=== PATIENT | female | born 1935 | race American Indian/Alaskan Native ===

== ENCOUNTER 2016-12-14 11:29 | Inpatient (IN) | payer MEDICARE ==
--- NOTE | 2016-12-14 12:52 | C.PDOC ---
History Of Present Illness 81 y/o female with Hx of Stroke brought to ED via EMS from home for PEG tube evaluation. Son was contacted and information regarding patient was obtained from him. At ED patient is bed bound, non verbal and contractive with no family member at bedside. As per son patient lives with Aids at home and has visiting nurse care as well as house call for physician care because she is unable to visit doctor's office. Patient has a feeding tube and a Arnold in place. No other complaints at this time. Time Seen by Provider: 12/14/16 12:28 Chief Complaint (Nursing): Medical Clearance History Per: Family (Son) History/Exam Limitations: physical impairment (Patient is non verbal) Onset/Duration Of Symptoms: Days Current Symptoms Are (Timing): Still Present Past Medical History Reviewed: Historical Data, Nursing Documentation, Vital Signs Vital Signs: Last Vital Signs Temp 98.0 F 12/14/16 14:32 Pulse 92 H 12/14/16 14:32 Resp 24 12/14/16 14:32 BP 136/91 H 12/14/16 14:32 Pulse Ox 100 12/14/16 14:32 Family History: States: No Known Family Hx - Social History Hx Alcohol Use: No Hx Substance Use: No Review Of Systems Review Of Systems: ROS cannot be obtained secondary to pt's inabilty to answer questions. (Patient is non verbal) Physical Exam - Physical Exam Appears: Other (Malodorous, non verbal) Skin: Warm Head: Atraumatic Respiratory: No Rales, Rhonchi (Scattered ), No Wheezing Gastrointestinal/Abdominal: Soft, No Tenderness, No Guarding, No Rebound, Other (Obese abdomen, PEG in place, Arnold in place) Extremity: Capillary Refill (<2 seconds), Other (Lower extremities contracted, Healing bedsores to heels ) Neurological/Psych: Oriented x3 ED Course And Treatment - Laboratory Results Result Diagrams: 12/14/16 13:28 12/14/16 13:28 O2 Sat by Pulse Oximetry: 99 (RA) Pulse Ox Interpretation: Normal Medical Decision Making Medical Decision Making: Call out to GI doctor Basic full work up ordered Spoke with family, they suspected an issue with the Peg. Patient seen by GI, Peg flushing well. Spoke to family, they request swallow eval and treatment for thrush. Spoke with PMD, Dr Gordon, will hospitalize for hydration, swallow eval, Disposition Discussed With DrYoly: Sahra Womack Doctor Will See Patient In The: Office Counseled Patient/Family Regarding: Studies Performed, Diagnosis - Disposition Disposition: HOSPITALIZED Disposition Time: 15:08 Condition: GUARDED - POA Present On Arrival: None - Clinical Impression Clinical Impression: Thrush, oral - Scribe Statement The provider has reviewed the documentation as recorded by the [place] All medical record entries made by the Lauren were at my direction and personally dictated by me. I have reviewed the chart and agree that the record accurately reflects my personal performance of the history, physical exam, medical decision making, and the department course for this patient. I have also personally directed, reviewed, and agree with the discharge instructions and disposition. Decision To Admit - Pt Status Changed To: Hospital Disposition Of: Observation - . Bed Request Type: Regular Patient Diagnosis: Thrush, oral
--- NOTE | 2016-12-14 13:19 | RAD ---
HISTORY: Sepsis Patient COMPARISON: None available. TECHNIQUE: Chest, one view. FINDINGS: Examination limited by habitus, hypoinflation, and patient obliquity. LUNGS: Retrocardiac opacity with evidence of air-fluid level suspected to reflect large hiatal hernia. Please note that chest x-ray has limited sensitivity for the detection of pulmonary masses. PLEURA: No significant pleural effusion identified. No definite pneumothorax . CARDIOVASCULAR: Cardiomegaly. Ectatic aorta. OSSEOUS STRUCTURES: Degenerative changes. VISUALIZED UPPER ABDOMEN: Unremarkable. OTHER FINDINGS: None. IMPRESSION: Limited study as above. Large retrocardiac opacity suspected to reflect hiatal hernia. Recommend chest PA and lateral for confirmation if indicated.
[2016-12-14 13:27] LABS: VENOUS BLOOD GAS BASE EXCESS 1.2 mmol/L (0.0-2.0); VENOUS BLOOD GAS PCO2 41 mmHg (40-60); VENOUS BLOOD GAS PO2 34 mm/Hg (30-55); VENOUS BLOOD PH 7.41 (7.32-7.43)
[2016-12-14 13:32] LABS: BASO # 0.1 K/uL (0.0-0.2); BASO % 0.5 % (0.0-2.0); EOS # 0.2 K/uL (0.0-0.7); EOS % 1.9 % (0.0-4.0); HEMOGLOBIN 12.6 g/dL (11.0-16.0); LYMPH # 1.2 K/uL (1.0-4.3); LYMPH % 11.5 % (20.0-40.0); MEAN CORPUSCULAR HEMOGLOBIN 27.9 pg (27.0-31.0); MEAN CORPUSCULAR HGB CONC 32.8 g/dL (33.0-37.0); MEAN PLATELET VOLUME 8.9 fL (7.2-11.7); MONO # 0.7 K/uL (0.0-0.8); MONO % 6.8 % (0.0-10.0); NEUT # 8.2 K/uL (1.8-7.0); NEUT % 79.3 % (50.0-75.0); NRBC % 0.1 % (0.0-2.0); RBC 4.52 Mil/uL (3.80-5.20); RED CELL DISTRIBUTION WIDTH 16.4 % (11.5-14.5); WHITE BLOOD COUNT 10.4 K/uL (4.8-10.8)
[2016-12-14 13:40] LABS: ALBUMIN 3.5 g/dL (3.5-5.0)
[2016-12-14 13:42] LABS: GFR AFRICAN-AMERICAN > 60; GFR NON-AFRICAN AMERICAN > 60
[2016-12-14 13:43] LABS: ALB/GLOB RATIO 0.9 (1.0-2.1); ALT/SGPT 44 U/L (9-52); AST/SGOT 31 U/L (14-36); BLOOD UREA NITROGEN 23 mg/dL (7-17)
[2016-12-14 13:44] LABS: CALCIUM 9.3 mg/dl (8.6-10.4)
[2016-12-14 13:52] LABS: B-TYPE NATRIURETIC PEPTIDE 141 pg/mL (0-900)
--- NOTE | 2016-12-14 14:32 | CP.PCM.PN ---
Subjective - Date & Time of Evaluation Date of Evaluation: 12/14/16 Time of Evaluation: 12:45 - Subjective Subjective: PGY5 GI Fellow Eval Note Our service was asked to evaluate the patient's PEG tube. No family or caretakers were available until after our evaluation. The PEG site in intact with minimal drainage (normal) from around the PEG tube site. Patient's skin is intact and there is no obvious infection or irritation. A Arminda syringe was used to flush and withdraw fluid from the tube with ease. There is no evidence of malfunction. The patient's manager of tires sales arrived after evaluation and is unable to explain what the patients son's concern was regarding the PEG tube. She was reassured that the tube is working properly. Lab work is pending. Vitals are stable. Objective - Vital Signs/Intake and Output Vital Signs (last 24 hours): Temp Pulse Resp BP Pulse Ox 98.1 F 86 24 129/81 99 12/14/16 11:48 12/14/16 11:48 12/14/16 11:48 12/14/16 11:48 12/14/16 13:02 - Labs Labs: 12/14/16 13:28 12/14/16 13:28 - Constitutional Appears: No Acute Distress, Chronically Ill - Eye Exam Eye Exam: PERRL - ENT Exam ENT Exam: Mucous Membranes Dry - Respiratory Exam Respiratory Exam: Clear to Ausculation Bilateral. absent: Rales, Rhonchi, Wheezes - Cardiovascular Exam Cardiovascular Exam: RRR, +S1, +S2 - GI/Abdominal Exam GI & Abdominal Exam: Soft, Normal Bowel Sounds. absent: Distended, Firm, Guarding, Rigid, Tenderness, Organomegaly Additional comments: PEG in LUQ with minimal drainage and working appropriately - Extremities Exam Extremities Exam: absent: Pedal Edema Additional comments: contractures noted - Neurological Exam Neurological Exam: Altered. absent: Oriented x3 - Skin Skin Exam: Dry, Warm Assessment and Plan - Assessment and Plan (Free Text) Assessment: 81yo female with PMHx significant for CVA here for PEG tube eval. Plan: -PEG fully functional with no obvious sign of infection -Awaiting blood work -No further recommendations at this time
[2016-12-14 15:06] LABS: SQUAMOUS EPITHIAL < 1 /hpf (0-5); URINE AMORPHOUS SEDIMENT MANY /ul (<OCC); URINE BACTERIA RARE (<OCC); URINE BILIRUBIN NEGATIVE (NEGATIVE); URINE BLOOD NEGATIVE (NEGATIVE); URINE CLARITY Turbid (Clear); URINE COLOR Amber (YELLOW); URINE GLUCOSE (UA) NORMAL (Normal); URINE LEUKOCYTE ESTERASE 2+ Leu/uL (Negative); URINE NITRATE NEGATIVE (NEGATIVE); URINE PROTEIN 2+ mg/dL (NEGATIVE); URINE URIC ACID CRYSTALS FEW /hpf (<OCC)
--- NOTE | 2016-12-14 15:19 | CP.PCM.HP ---
<Olga Shanks - Last Filed: 12/14/16 16:02> History of Present Illness - History of Present Illness History of Present Illness: Medicine Note for Dr. Dubois CC: Malfunctioning PEG Tube HPI: 81F with PMHx of CVA and HTN, presents with a malfunctioning PEG Tube and dysphasia. Patient is contracted, nonverbal s/p CVA. As per Grandson, who was called, the family had difficulty giving her tube feedings last night. Family brought her in due to the inability to give her feedings. Family also reports, they have issues with the valdez catheter coming out. As per grandson, this is the patient's baseline, she is not altered. ROS unattainable. PMHx: CVA in 2014, HTN PSHx: PEG tube Meds: As per JUL All: NKDA SHx: denied x 3 FHx: unremarkable PMD: Dr. Womack Present on Admission - Present on Admission Any Indicators Present on Admission: No Past Patient History - Past Social History Smoking Status: Unknown If Ever Smoked - PSYCHIATRIC Hx Substance Use: No - SURGICAL HISTORY Hx Surgeries: Yes Other/Comment: FEEDING TUBE INSERTION Meds Allergies/Adverse Reactions: Allergies Allergy/AdvReac Type Severity Reaction Status Date / Time Unobtainable Allergy Unverified 12/14/16 11:54 Physical Exam - Constitutional Appears: No Acute Distress, Unkempt - Eye Exam Eye Exam: EOMI, Normal appearance, PERRL Pupil Exam: NORMAL ACCOMODATION - ENT Exam ENT Exam: Mucous Membranes Dry - Respiratory Exam Respiratory Exam: Clear to Auscultation Bilateral, NORMAL BREATHING PATTERN. absent: Wheezes - Cardiovascular Exam Cardiovascular Exam: REGULAR RHYTHM, RRR, +S1, +S2 - GI/Abdominal Exam GI & Abdominal Exam: Normal Bowel Sounds, Soft. absent: Distended, Tenderness - Extremities Exam Extremities exam: Positive for: normal inspection, pedal pulses present. Negative for: pedal edema, tenderness Additional comments: contracted - Neurological Exam Neurological exam: Alert Additional comments: contracted - Skin Skin Exam: Dry, Intact, Normal Color, Warm Results - Vital Signs Recent Vital Signs: Last Vital Signs Temp 98.0 F 12/14/16 14:32 Pulse 92 H 12/14/16 14:32 Resp 24 12/14/16 14:32 BP 136/91 H 12/14/16 14:32 Pulse Ox 99 12/14/16 15:11 - Labs Result Diagrams: 12/14/16 13:28 12/14/16 13:28 Labs: Laboratory Results - last 24 hr 12/14/16 12/14/16 12/14/16 13:24 13:28 13:28 WBC 10.4 RBC 4.52 Hgb 12.6 Hct 38.5 MCV 85.0 MCH 27.9 MCHC 32.8 L RDW 16.4 H Plt Count 344 MPV 8.9 Neut % (Auto) 79.3 H Lymph % (Auto) 11.5 L Harmon % (Auto) 6.8 Eos % (Auto) 1.9 Baso % (Auto) 0.5 Neut # 8.2 H Lymph # 1.2 Harmon # 0.7 Eos # 0.2 Baso # 0.1 pO2 34 VBG pH 7.41 VBG pCO2 41 VBG HCO3 25.0 VBG Total CO2 27.3 VBG O2 Sat (Calc) 74.9 H VBG Base Excess 1.2 VBG Potassium 4.7 Sodium 133.0 135 Chloride 103.0 99 Glucose 95 Lactate 1.2 Potassium 4.7 Carbon Dioxide 23 Anion Gap 17 BUN 23 H Creatinine 0.4 L Est GFR ( Amer) > 60 Est GFR (Non-Af Amer) > 60 Random Glucose 94 Calcium 9.3 Total Bilirubin 0.8 AST 31 ALT 44 Alkaline Phosphatase 125 Troponin I < 0.0120 NT-Pro-B Natriuret Pep 141 Total Protein 7.5 Albumin 3.5 Globulin 4.1 H Albumin/Globulin Ratio 0.9 L Venous Blood Potassium 4.7 Urine Color Urine Clarity Urine pH Ur Specific Oriental Urine Protein Urine Glucose (UA) Urine Ketones Urine Blood Urine Nitrate Urine Bilirubin Urine Urobilinogen Ur Leukocyte Esterase Urine WBC (Auto) Urine RBC (Auto) Ur Squamous Epith Cells Uric Acid Crystals Amorphous Sediment Urine Bacteria 12/14/16 14:43 WBC RBC Hgb Hct MCV MCH MCHC RDW Plt Count MPV Neut % (Auto) Lymph % (Auto) Harmon % (Auto) Eos % (Auto) Baso % (Auto) Neut # Lymph # Harmon # Eos # Baso # pO2 VBG pH VBG pCO2 VBG HCO3 VBG Total CO2 VBG O2 Sat (Calc) VBG Base Excess VBG Potassium Sodium Chloride Glucose Lactate Potassium Carbon Dioxide Anion Gap BUN Creatinine Est GFR ( Amer) Est GFR (Non-Af Amer) Random Glucose Calcium Total Bilirubin AST ALT Alkaline Phosphatase Troponin I NT-Pro-B Natriuret Pep Total Protein Albumin Globulin Albumin/Globulin Ratio Venous Blood Potassium Urine Color Corrina Urine Clarity Turbid Urine pH 8.0 Ur Specific Oriental 1.016 Urine Protein 2+ H Urine Glucose (UA) Normal Urine Ketones Negative Urine Blood Negative Urine Nitrate Negative Urine Bilirubin Negative Urine Urobilinogen 2.0 H Ur Leukocyte Esterase 2+ H Urine WBC (Auto) 64 H Urine RBC (Auto) 4 H Ur Squamous Epith Cells < 1 Uric Acid Crystals Few H Amorphous Sediment Many H Urine Bacteria Rare Assessment & Plan - Assessment and Plan (Free Text) Assessment: 81F with PMHx of presents to the ED with Malfunctioning PEG Tube. Plan: Malfunctioning PEG Tube * Patient was evaluated by GI, PEG was flushed and is functional. * PEG is OKAY to use * Restarted TUBE feedings @ 40cc/hr patient gets 60cc/hr at home. UTI * UA: + LE * Started on NS 100cc/hr * F/U Urine Culture * Started on Rocephin 1 gram daily Oral Thrush * Diflucan 200mg PEG STAT * Started on Diflucan 100mg PEG daily starting 12/15/16 HTN * Restarted home medications: Norvasc 10mg PEG daily, Lopressor 25mg PEG BID Prophylactic Measures * GI PPX: Pepcid 40mg PEG daily * DVT PPX: Heparin [id number], SCDs * NPO until Swallow Eval DW Rimma Hui DO, PGY-1 <Josie Swain V - Last Filed: 12/15/16 20:37> Results - Vital Signs Recent Vital Signs: Last Vital Signs Temp 98.8 F 12/15/16 16:00 Pulse 92 H 12/15/16 16:00 Resp 18 12/15/16 16:00 BP 111/74 12/15/16 17:41 Pulse Ox 98 12/15/16 16:00 - Labs Result Diagrams: 12/15/16 07:08 12/15/16 07:08 Labs: Laboratory Results - last 24 hr 12/15/16 12/15/16 12/15/16 00:02 05:53 07:06 WBC RBC Hgb Hct MCV MCH MCHC RDW Plt Count MPV Neut % (Auto) Lymph % (Auto) Harmon % (Auto) Eos % (Auto) Baso % (Auto) Neut # Lymph # Harmon # Eos # Baso # Sodium Potassium Chloride Carbon Dioxide Anion Gap BUN Creatinine Est GFR ( Amer) Est GFR (Non-Af Amer) POC Glucose (mg/dL) 77 92 119 H Random Glucose Calcium Phosphorus Magnesium Total Bilirubin AST ALT Alkaline Phosphatase Total Protein Albumin Globulin Albumin/Globulin Ratio HIV 1&2 Antibody Screen 12/15/16 12/15/16 12/15/16 07:08 07:08 10:43 WBC 8.9 RBC 4.20 Hgb 11.8 Hct 35.9 MCV 85.4 MCH 28.2 MCHC 33.0 RDW 16.8 H Plt Count 303 MPV 8.7 Neut % (Auto) 79.0 H Lymph % (Auto) 12.3 L Harmon % (Auto) 7.0 Eos % (Auto) 1.3 Baso % (Auto) 0.4 Neut # 7.0 Lymph # 1.1 Harmon # 0.6 Eos # 0.1 Baso # 0.0 Sodium 138 Potassium 4.0 Chloride 103 Carbon Dioxide 24 Anion Gap 15 BUN 19 H Creatinine 0.4 L Est GFR ( Amer) > 60 Est GFR (Non-Af Amer) > 60 POC Glucose (mg/dL) Random Glucose 105 Calcium 8.7 Phosphorus 3.3 Magnesium 1.6 Total Bilirubin 0.8 AST 25 ALT 38 Alkaline Phosphatase 102 Total Protein 6.5 Albumin 3.1 L Globulin 3.4 Albumin/Globulin Ratio 0.9 L HIV 1&2 Antibody Screen Negative 12/15/16 12/15/16 11:13 16:19 WBC RBC Hgb Hct MCV MCH MCHC RDW Plt Count MPV Neut % (Auto) Lymph % (Auto) Harmon % (Auto) Eos % (Auto) Baso % (Auto) Neut # Lymph # Harmon # Eos # Baso # Sodium Potassium Chloride Carbon Dioxide Anion Gap BUN Creatinine Est GFR ( Amer) Est GFR (Non-Af Amer) POC Glucose (mg/dL) 120 H 109 Random Glucose Calcium Phosphorus Magnesium Total Bilirubin AST ALT Alkaline Phosphatase Total Protein Albumin Globulin Albumin/Globulin Ratio HIV 1&2 Antibody Screen Attending/Attestation - Attestation I have personally seen and examined this patient.: Yes I have fully participated in the care of the patient.: Yes I have reviewed all pertinent clinical information: Yes Notes (Text): This is late computer entry for 12/14/16. Patient seen, examined and case discussed with day-time resident. Patient is bed-bound, nonverbal, individual which prior hx of stroke who was brought into the ED for malfunctioning Peg tube. GI evaluated the patient in the ED, and peg tube is now functioning. Attempt to call family and PMD, Dr Womack to retrieve further history regarding the patient and goals of care for the patient. Patient has oral thrush, unclear if she is able to swallow in addition to peg tube. Patient's home medications for blood pressure resumed on admission. Family provided medications to the ED prior to leaving. UA appears abnormal. Patient has healing wounds over the sacrum and lower extremities. Patient ordered for turn q 2hours to prevent sacral decub given she is bed- bound. Discussed admitting orders with day-time resident. Assessment/Plan 1) Malfunctioning PEG Tube * Patient was evaluated by GI, PEG was flushed and is functional. * PEG is OKAY to use * Restarted TUBE feedings @ 40cc/hr patient gets 60cc/hr at home. 2) UTI * UA: + LE * Started on NS 100cc/hr * F/U Urine Culture * Started on Rocephin 1 gram daily as empiric antibiotic coverage 3) Oral Thrush * Diflucan 200mg PEG STAT * Started on Diflucan 100mg PEG daily starting 12/15/16 4) Hypertension * Restarted home medications: Norvasc 10mg PEG daily, Lopressor 25mg PEG BID 5) Prophylactic Measures * GI PPX: Pepcid 40mg PEG daily * DVT PPX: Heparin [id number], SCDs * NPO until Swallow Eval * Peg feedings resumed
[2016-12-14] MEDS ORDERED: cefTRIAXone IV 1 gm in Dextros 50 ML IVPB ONE ×2 (15:59→16:17)
[2016-12-14] MEDS ORDERED: Sodium Chloride 0.9% 1,000 ML ONE (16:17)
[2016-12-14] MEDS: Sodium Chloride 0.9% 1,000 ML IV SCH (16:20)
[2016-12-14] MEDS: Saccharomyces Boulardi 250 mg Cap PEG SCH (20:01)
[2016-12-15] MEDS: Sodium Chloride 0.9% 1,000 ML IV SCH ×3 (02:14→13:27)
[2016-12-15 07:30] LABS: BASO % 0.4 % (0.0-2.0); EOS # 0.1 K/uL (0.0-0.7); EOS % 1.3 % (0.0-4.0); HEMOGLOBIN 11.8 g/dL (11.0-16.0); LYMPH # 1.1 K/uL (1.0-4.3); LYMPH % 12.3 % (20.0-40.0); MEAN CELL VOLUME 85.4 fL (81.0-99.0); MEAN CORPUSCULAR HEMOGLOBIN 28.2 pg (27.0-31.0); MEAN PLATELET VOLUME 8.7 fL (7.2-11.7); MONO # 0.6 K/uL (0.0-0.8); NRBC % 0.1 % (0.0-2.0); RBC 4.2 Mil/uL (3.80-5.20); RED CELL DISTRIBUTION WIDTH 16.8 % (11.5-14.5); WHITE BLOOD COUNT 8.9 K/uL (4.8-10.8)
[2016-12-15 08:00] LABS: ALBUMIN 3.1 g/dL (3.5-5.0)
[2016-12-15 08:03] LABS: ALB/GLOB RATIO 0.9 (1.0-2.1); ALT/SGPT 38 U/L (9-52); AST/SGOT 25 U/L (14-36); BLOOD UREA NITROGEN 19 mg/dL (7-17); GFR AFRICAN-AMERICAN > 60; GFR NON-AFRICAN AMERICAN > 60
[2016-12-15 08:04] LABS: CALCIUM 8.7 mg/dl (8.6-10.4); MAGNESIUM 1.6 mg/dL (1.6-2.3)
--- NOTE | 2016-12-15 09:37 | CP.PCM.PN ---
<Olga Shanks - Last Filed: 12/15/16 09:34> Subjective - Date & Time of Evaluation Date of Evaluation: 12/15/16 Time of Evaluation: 07:00 - Subjective Subjective: Medicine Note for Dr. Swain Patient was seen and examined at bedside. Patient is contracted, nonverbal but acknowledges presence and responds to my voice. ROS unattainable. Objective - Vital Signs/Intake and Output Vital Signs (last 24 hours): Temp Pulse Resp BP Pulse Ox 98.1 F 92 H 22 113/66 97 12/15/16 07:44 12/15/16 07:44 12/15/16 07:44 12/15/16 07:44 12/15/16 07:44 Intake and Output: 12/15/16 12/15/16 06:59 18:59 Intake Total 1890 Output Total 500 Balance 1390 - Medications Medications: Current Medications Amlodipine Besylate (Norvasc) 10 mg PEG DAILY [facility] Famotidine (Pepcid) 40 mg PEG DAILY [facility] Fluconazole (Diflucan) 100 mg PEG DAILY [facility] Heparin Sodium (Porcine) (Heparin) 5,000 units SC Q12H [facility] Last Admin: 12/14/16 21:06 Dose: 5,000 units Sodium Chloride (Sodium Chloride 0.9%) 1,000 mls @ 100 mls/hr IV .Q10H [facility] Last Admin: 12/15/16 02:14 Dose: 100 mls/hr Ceftriaxone Sodium 1 gm/ (Sodium Chloride) 100 mls @ 100 mls/hr IVPB DAILY [facility] Metoprolol Tartrate (Lopressor) 25 mg PEG BID [facility] Last Admin: 12/14/16 19:00 Dose: 25 mg Pneumococcal Polyvalent Vaccine (Pneumovax 23 Vaccine) 0.5 ml IM .ONCE ONE Stop: 12/16/16 10:01 Saccharomyces Boulardii (Florastor) 250 mg PEG BID [facility] Last Admin: 12/14/16 20:01 Dose: 250 mg - Labs Labs: 12/15/16 07:08 12/15/16 07:08 - Constitutional Appears: No Acute Distress - Head Exam Head Exam: NORMAL INSPECTION, NORMOCEPHALIC - Eye Exam Eye Exam: EOMI, Normal appearance, PERRL Pupil Exam: NORMAL ACCOMODATION - ENT Exam Additional comments: significant oral thrush - Respiratory Exam Respiratory Exam: Clear to Ausculation Bilateral, NORMAL BREATHING PATTERN. absent: Wheezes - Cardiovascular Exam Cardiovascular Exam: REGULAR RHYTHM, RRR - GI/Abdominal Exam GI & Abdominal Exam: Soft, Normal Bowel Sounds. absent: Distended, Tenderness - Extremities Exam Extremities Exam: Normal Inspection. absent: Pedal Edema, Tenderness Additional comments: Contracted - Neurological Exam Neurological Exam: Alert, Awake - Psychiatric Exam Psychiatric exam: Normal Affect, Normal Mood - Skin Skin Exam: Dry, Intact, Normal Color, Warm Assessment and Plan - Assessment and Plan (Free Text) Assessment: 81F with PMHx of presents to the ED with Malfunctioning PEG Tube and UTI. Plan: UTI * UA: + LE * Started on NS 100cc/hr * Started on Rocephin 1 gram daily * F/U Urine Culture Oral Thrush * Started on Diflucan 100mg PEG daily starting 12/15/16 Malfunctioning PEG Tube * Patient was evaluated by GI, PEG was flushed and is functional. * PEG is OKAY to use * Restarted TUBE feedings @ 40cc/hr patient gets 60cc/hr at home. HTN * Restarted home medications: Norvasc 10mg PEG daily, Lopressor 25mg PEG BID Prophylactic Measures * GI PPX: Pepcid 40mg PEG daily * DVT PPX: Heparin [id number], SCDs * Continue PEG feedings, no pleasure feedings * Q2 Turning and repositioning * Pending medical records from PMD's office * Palliative care consulted for goals of care, will reach out to family to determine extent of care they would like DW Rimma Hui DO, PGY-1 <Josie Swain V - Last Filed: 12/15/16 20:50> Objective - Vital Signs/Intake and Output Vital Signs (last 24 hours): Temp Pulse Resp BP Pulse Ox 98.8 F 92 H 18 111/74 98 12/15/16 16:00 12/15/16 16:00 12/15/16 16:00 12/15/16 17:41 12/15/16 16:00 Intake and Output: 12/15/16 12/16/16 18:59 06:59 Intake Total 1320 Output Total 350 Balance 970 - Medications Medications: Current Medications Amlodipine Besylate (Norvasc) 10 mg PEG DAILY [facility] Last Admin: 12/15/16 11:29 Dose: 10 mg Famotidine (Pepcid) 40 mg PEG DAILY [facility] Last Admin: 12/15/16 11:29 Dose: 40 mg Fluconazole (Diflucan) 100 mg PEG DAILY [facility] Last Admin: 12/15/16 11:30 Dose: 100 mg Heparin Sodium (Porcine) (Heparin) 5,000 units SC Q12H [facility] Last Admin: 12/15/16 09:53 Dose: 5,000 units Ceftriaxone Sodium 1 gm/ (Sodium Chloride) 100 mls @ 100 mls/hr IVPB DAILY [facility] Last Admin: 12/15/16 09:51 Dose: 100 mls/hr Sodium Chloride (Sodium Chloride 0.9%) 1,000 mls @ 60 mls/hr IV .[id number] [facility] Last Admin: 12/15/16 13:27 Dose: Not Given Metoprolol Tartrate (Lopressor) 25 mg PEG BID [facility] Last Admin: 12/15/16 17:41 Dose: 25 mg Pneumococcal Polyvalent Vaccine (Pneumovax 23 Vaccine) 0.5 ml IM .ONCE ONE Stop: 12/16/16 10:01 Saccharomyces Boulardii (Florastor) 250 mg PEG BID [facility] Last Admin: 12/15/16 17:41 Dose: 250 mg - Labs Labs: 12/15/16 07:08 12/15/16 07:08 Attending/Attestation - Attestation I have personally seen and examined this patient.: Yes I have fully participated in the care of the patient.: Yes I have reviewed all pertinent clinical information, including history, physical exam and plan: Yes Notes (Text): Patient seen, examined and case discussed with day-time resident. Patient's peg tube is functioning. No over night issues per nursing staff. Discussed with speech and swallow, Shanice, patient has extensive thrush, recommended pleasure feeds. Unclear if patient has had a prior endoscopy or what the family wishes regarding invasive treatment. Will attempt to follow-up with PMD. Palliative care consult regarding goals of care and code status. Assessment/Plan 1) Malfunctioning PEG Tube * Patient was evaluated by GI, PEG was flushed and is functional. * PEG is OKAY to use * Restarted TUBE feedings @ 40cc/hr patient gets 60cc/hr at home. 2) Urinary Tract Infection * UA: + LE * NS 100cc/hr * Urine Culture (12/14/16): gram negative garrett prelim read * Started on Rocephin 1 gram daily as empiric antibiotic coverage * Blood culture (12/14/16): no growth for 24hours X2 3) Oral Thrush * Diflucan 200mg PEG STAT * Started on Diflucan 100mg PEG daily starting 12/15/16 4) Hypertension * Restarted home medications: Norvasc 10mg PEG daily, Lopressor 25mg PEG BID 5) Prophylactic Measures * GI PPX: Pepcid 40mg PEG daily * DVT PPX: Heparin [id number], SCDs * NPO until Swallow Eval * Peg feedings resumed * Palliative care * Turn Q 2hours
--- NOTE | 2016-12-15 09:40 | RAD ---
Chest x-ray single frontal view History: Evaluate for fluid overload. Comparison: 12/14/2016 Findings: Again identified is a large retrocardiac opacity suspected to reflect hiatal hernia. Recommend chest PA and lateral for confirmation if indicated. Increased now mild venous congestion. Worsening linear atelectatic changes in the right midlung zone. Increased right infrahilar prominence. Cardiomegaly. Calcification at the aortic knob. Degenerative changes in the spine and shoulders. Impression: Again identified is a large retrocardiac opacity suspected to reflect hiatal hernia. Recommend chest PA and lateral for confirmation if indicated. Increased now mild venous congestion. Worsening linear atelectatic changes in the right midlung zone. Increased right infrahilar prominence. Cardiomegaly.
[2016-12-15] MEDS: Saccharomyces Boulardi 250 mg Cap PEG SCH ×2 (11:29→17:41)
--- NOTE | 2016-12-15 14:11 | CP.PCM.CON ---
History of Present Illness - History of Present Illness History of Present Illness: Palliative consult Requested by Olga ADAMS Reason; Goals of care discussion Patient is a 81 yo female admitted from home . Family claims difficulties feeding patient via PEG tube. Upon admission GI consult was called and Doctor Elva did not find PEG tube malfunction. The PEG flushes well. Patient found to have UTI, gram - rods and Diflucan and Rocephin initiated. PMH: CVA, HTN Soc. Hx: Lives at home with group home counselor and VNS services. Patient is bed ridden, contracted, non verbal and with PEG Fam Hx: Patient's daughter from kidney failure, and grandson reports Hx of HTN in the family Review of Systems - Review of Systems Systems not reviewed;Unavailable: Altered Mental Status All systems: reviewed and no additional remarkable complaints except Review of Systems: ROS obtained from nursing. As per nursing patient had uneventful night and PEG tube was functioning well. Patient remains afebrile. Valdez drains yellow urine. No acute distress. Past Patient History - Past Social History Smoking Status: Unknown If Ever Smoked - CARDIAC Hx Hypertension: Yes - NEUROLOGICAL Other/Comment: aphasic - INTEGUMENTARY Other/Comment: with healed right heel and sacral decub. - MUSCULOSKELETAL/RHEUMATOLOGICAL Hx Falls: No - GASTROINTESTINAL Other/Comment: with gtt intact. - GENITOURINARY/GYNECOLOGICAL Other/Comment: with 2way valdez cath intact. - PSYCHIATRIC Hx Substance Use: No - SURGICAL HISTORY Hx Surgeries: Yes Other/Comment: FEEDING TUBE INSERTION - ANESTHESIA Hx Anesthesia: Yes Hx Anesthesia Reactions: No Hx Malignant Hyperthermia: No Has any member of the family had a problem w/ anesthesia?: No Meds Allergies/Adverse Reactions: Allergies Allergy/AdvReac Type Severity Reaction Status Date / Time Unobtainable Allergy Unverified 12/14/16 11:54 - Medications Medications: Current Medications Amlodipine Besylate (Norvasc) 10 mg PEG DAILY [facility] Last Admin: 12/15/16 11:29 Dose: 10 mg Famotidine (Pepcid) 40 mg PEG DAILY [facility] Last Admin: 12/15/16 11:29 Dose: 40 mg Fluconazole (Diflucan) 100 mg PEG DAILY [facility] Last Admin: 12/15/16 11:30 Dose: 100 mg Heparin Sodium (Porcine) (Heparin) 5,000 units SC Q12H [facility] Last Admin: 12/15/16 09:53 Dose: 5,000 units Ceftriaxone Sodium 1 gm/ (Sodium Chloride) 100 mls @ 100 mls/hr IVPB DAILY [facility] Last Admin: 12/15/16 09:51 Dose: 100 mls/hr Sodium Chloride (Sodium Chloride 0.9%) 1,000 mls @ 60 mls/hr IV .[id number] [facility] Last Admin: 12/15/16 13:27 Dose: Not Given Metoprolol Tartrate (Lopressor) 25 mg PEG BID [facility] Last Admin: 12/15/16 11:30 Dose: 25 mg Pneumococcal Polyvalent Vaccine (Pneumovax 23 Vaccine) 0.5 ml IM .ONCE ONE Stop: 12/16/16 10:01 Saccharomyces Boulardii (Florastor) 250 mg PEG BID [facility] Last Admin: 12/15/16 11:29 Dose: 250 mg Physical Exam - Constitutional Appears: Chronically Ill - Head Exam Head Exam: ATRAUMATIC, NORMAL INSPECTION, NORMOCEPHALIC - Eye Exam Eye Exam: Normal appearance, PERRL Pupil Exam: NORMAL ACCOMODATION, PERRL - ENT Exam ENT Exam: Mucous Membranes Dry - Neck Exam Neck exam: Positive for: Normal Inspection - Respiratory Exam Respiratory Exam: Decreased Breath Sounds, NORMAL BREATHING PATTERN - Cardiovascular Exam Cardiovascular Exam: Tachycardia, REGULAR RHYTHM, +S1, +S2 - GI/Abdominal Exam GI & Abdominal Exam: Diminished Bowel Sounds Additional comments: PEG - Rectal Exam Rectal Exam: Deferred - Extremities Exam Additional comments: contracted - Back Exam Back exam: NORMAL INSPECTION - Neurological Exam Neurological exam: Alert, Altered, Motor Sensory Deficit - Psychiatric Exam Psychiatric exam: Flat Affect - Skin Skin Exam: Dry, Intact, Normal Color Results - Vital Signs Recent Vital Signs: Last Vital Signs Temp 98.1 F 12/15/16 07:44 Pulse 92 H 12/15/16 07:44 Resp 22 12/15/16 07:44 BP 113/66 12/15/16 11:30 Pulse Ox 97 12/15/16 07:44 - Labs Result Diagrams: 12/15/16 07:08 12/15/16 07:08 Labs: Laboratory Results - last 24 hr 12/15/16 12/15/16 12/15/16 00:02 05:53 07:06 WBC RBC Hgb Hct MCV MCH MCHC RDW Plt Count MPV Neut % (Auto) Lymph % (Auto) [place] % (Auto) Eos % (Auto) Baso % (Auto) Neut # Lymph # [place] # Eos # Baso # Sodium Potassium Chloride Carbon Dioxide Anion Gap BUN Creatinine Est GFR ( Amer) Est GFR (Non-Af Amer) POC Glucose (mg/dL) 77 92 119 H Random Glucose Calcium Phosphorus Magnesium Total Bilirubin AST ALT Alkaline Phosphatase Total Protein Albumin Globulin Albumin/Globulin Ratio HIV 1&2 Antibody Screen 12/15/16 12/15/16 12/15/16 07:08 07:08 10:43 WBC 8.9 RBC 4.20 Hgb 11.8 Hct 35.9 MCV 85.4 MCH 28.2 MCHC 33.0 RDW 16.8 H Plt Count 303 MPV 8.7 Neut % (Auto) 79.0 H Lymph % (Auto) 12.3 L [place] % (Auto) 7.0 Eos % (Auto) 1.3 Baso % (Auto) 0.4 Neut # 7.0 Lymph # 1.1 [place] # 0.6 Eos # 0.1 Baso # 0.0 Sodium 138 Potassium 4.0 Chloride 103 Carbon Dioxide 24 Anion Gap 15 BUN 19 H Creatinine 0.4 L Est GFR ( Amer) > 60 Est GFR (Non-Af Amer) > 60 POC Glucose (mg/dL) Random Glucose 105 Calcium 8.7 Phosphorus 3.3 Magnesium 1.6 Total Bilirubin 0.8 AST 25 ALT 38 Alkaline Phosphatase 102 Total Protein 6.5 Albumin 3.1 L Globulin 3.4 Albumin/Globulin Ratio 0.9 L HIV 1&2 Antibody Screen Negative 12/15/16 11:13 WBC RBC Hgb Hct MCV MCH MCHC RDW Plt Count MPV Neut % (Auto) Lymph % (Auto) [place] % (Auto) Eos % (Auto) Baso % (Auto) Neut # Lymph # [place] # Eos # Baso # Sodium Potassium Chloride Carbon Dioxide Anion Gap BUN Creatinine Est GFR ( Amer) Est GFR (Non-Af Amer) POC Glucose (mg/dL) 120 H Random Glucose Calcium Phosphorus Magnesium Total Bilirubin AST ALT Alkaline Phosphatase Total Protein Albumin Globulin Albumin/Globulin Ratio HIV 1&2 Antibody Screen Assessment & Plan - Assessment and Plan (Free Text) Assessment: Palliative consult Full Code status, no advance directive on the chart, PPS 0% I reviewed medical records, all diagnostic studies, examined patient in the bed and discussed goals of care with her grandson over the phone. Patient is alert, makes eye contacts, nonverbal, with upper and lower extremities contracted. Patient looks chronically ill. Breath sounds diminished , no added sounds. Abdomen soft, PEG in place, functioning. Valdez drains clear urine. VS WNL, patient afebrile. In phone conversation with patient's grandson Mr. Tank Weaver, I learned that patient had CVA about 3 years ago and had been in this condition ever since. He reports that ever since it has been patient's base line condition. Mr. Fu is also under the impression that patient is fully aware of her surroundings , just unable to speak. he is attached to the patient, as the patient has been their closest relative ever since his parents . We discussed Code status. I offered information and help with completing POLST, since patient had no wishes for the end of life care documented. Mr. Fu stated understanding, but declined offer. Patient has a visiting UI ENGINEER at home, and Mr. Fu will talk to her more about the Code status on the next home visit. Impression * Chronically ill, elderly patient, fully dependent of help with care * Physical debility due to CVA * Very restricted mobility * Contractions * lack of quality of life * patient's wishes for the end of life care are not known * Patient's grand son advocates for the patient and declined completing the POLST at this time Suggestion * Promote skin integrity * Aspiration precautions * Oral hygiene * DNR/DNI would be appropriate level of care for this patient I discussed case with Visiting UI ENGINEER and suggested she takes over discussion about Code status, once patient returns home.
--- NOTE | 2016-12-15 18:59 | CARD ---
APPROVED REPORT EKG Measurement Heart [id number] <Conclusion> Normal sinus rhythm Low voltage QRS Borderline ECG
[2016-12-16] MEDS: Sodium Chloride 0.9% 1,000 ML IV SCH (05:19)
[2016-12-16 08:14] LABS: HEMOGLOBIN 10.9 g/dL (11.0-16.0); MEAN PLATELET VOLUME 8.8 fL (7.2-11.7)
[2016-12-16 08:21] LABS: BASO % 0.4 % (0.0-2.0); EOS # 0.2 K/uL (0.0-0.7); EOS % 1.8 % (0.0-4.0); LYMPH # 1.4 K/uL (1.0-4.3); MEAN CELL VOLUME 85.4 fL (81.0-99.0); MEAN CORPUSCULAR HEMOGLOBIN 27.8 pg (27.0-31.0); MEAN CORPUSCULAR HGB CONC 32.5 g/dL (33.0-37.0); MONO # 0.7 K/uL (0.0-0.8); MONO % 7.5 % (0.0-10.0); NEUT # 6.5 K/uL (1.8-7.0); NEUT % 74.3 % (50.0-75.0); RBC 3.92 Mil/uL (3.80-5.20); RED CELL DISTRIBUTION WIDTH 16.9 % (11.5-14.5); WHITE BLOOD COUNT 8.7 K/uL (4.8-10.8)
[2016-12-16 08:31] LABS: ALBUMIN 2.9 g/dL (3.5-5.0)
[2016-12-16 08:34] LABS: ALB/GLOB RATIO 0.8 (1.0-2.1); ALT/SGPT 31 U/L (9-52); AST/SGOT 17 U/L (14-36); BLOOD UREA NITROGEN 13 mg/dL (7-17); GFR AFRICAN-AMERICAN > 60; GFR NON-AFRICAN AMERICAN > 60
[2016-12-16 08:35] LABS: CALCIUM 8.5 mg/dl (8.6-10.4); MAGNESIUM 1.6 mg/dL (1.6-2.3)
[2016-12-16] MEDS: Saccharomyces Boulardi 250 mg Cap PEG SCH ×2 (09:31→17:31)
[2016-12-16] MEDS ORDERED: Pneumococcal 23-Valent Vaccine IM ONE (10:00)
--- NOTE | 2016-12-16 16:22 | CP.PCM.CON ---
History of Present Illness - History of Present Illness History of Present Illness: 81F presents with a malfunctioning PEG Tube and dysphasia. Patient is contracted , nonverbal s/p CVA. Family also reports, they have issues with the valdez catheter coming out. ID consulted for + urine c/s PMHx: CVA in 2015, right sided weak OBS HTN PSHx: PEG tube All: NKDA SHx: denied x 3 FHx: unremarkable Review of Systems - Review of Systems Systems not reviewed;Unavailable: Altered Mental Status - Constitutional Constitutional: absent: As Per HPI, Anorexia, Chills, Daytime Sleepiness, Excessive Sweating, Fatigue, Fever, Frequent Falls, Headache, Increased Appetite , Lethargy, Malaise, Night Sweats, Snoring, Sleep Apnea, Weight Gain, Weight Loss, Weakness, Other - EENT Eyes: absent: As Per HPI, Blind Spots, Blurred Vision, Change in Vision, Decreased Night Vision, Diplopia, Discharge, Dry Eye, Exophthalmos, Floaters, Irritation, Itchy Eyes, Loss of Peripheral Vision, Pain, Photophobia, Requires Corrective Lenses, Sees Flashes, Spots in Vision, Tunnel Vision, Other Visual Disturbances, Loss of Vision, Other Ears: absent: As Per HPI, Decreased Hearing, Ear Discharge, Ear Pain, Tinnitus, Abnormal Hearing, Disequilibrium, Dizziness, Other Nose/Mouth/Throat: absent: As Per HPI, Epistaxis, Nasal Congestion, Nasal Discharge, Nasal Obstruction, Nasal Trauma, Nose Pain, Post Nasal Drip, Sinus Pain, Sinus Pressure, Bleeding Gums, Change in Voice, Dental Pain, Dry Mouth, Dysphagia, Halitosis, Hoarsness, Lip Swelling, Mouth Lesions, Mouth Pain, Odynophagia, Sore Throat, Throat Swelling, Tongue Swelling, Facial Pain, Neck Pain, Neck Mass, Other - Breasts Breasts: absent: As Per HPI, Change in Shape, Mass, Pain, Nipple Discharge, Nipple Inversion, Skin Changes, Swelling, Other - Cardiovascular Cardiovascular: absent: As Per HPI, Acrocyanosis, Chest Pain, Chest Pain at Rest , Chest Pain with Activity, Claudication, Diaphoresis, Dyspnea, Dyspnea on Exertion, Edema, Irregular Heart Rhythm, Pain Radiating to Arm/Neck/Jaw, Leg Edema, Leg Ulcers, Lightheadedness, Orthopnea, Palpitations, Paroxysmal Nocturnal Dyspnea, Pedal Edema, Radiating Pain, Rapid Heart Rate, Slow Heart Rate, Syncope, Other - Respiratory Respiratory: absent: As Per HPI, Cough, Dyspnea, Hemoptysis, Dyspnea on Exertion , Wheezing, Snoring, Stridor, Pain on Inspiration, Chest Congestion, Excessive Mucous Production, Change in Mucous Color, Pain with Coughing, Other - Gastrointestinal Gastrointestinal: absent: As Per HPI, Abdominal Pain, Belching, Bloating, Change in Bowel Habits, Change in Stool Character, Coffee Ground Emesis, Constipation, Cramping, Diarrhea, Dyspepsia, Dysphagia, Early Satiety, Excessive Flatus, Fecal Incontinence, Heartburn, Hematemesis, Hematochezia, Loose Stools, Melena, Nausea, Odynophagia, Temesmus, Vomiting, Other - Genitourinary Genitourinary: As Per HPI - Reproductive: Female Reproductive:Female: absent: As Per HPI, Amenorrhea, Amenorrhea/ Control, Currently Menstual, Cycle <21 Days, Cycle >35 Days, Cycle Variable, Menses 1-7 Days, Menses >/= 8 Days, Menses Variable, Cycle > 4 Weeks Between, No Menses for 6 Months, Heavy Menses, Light Menses, Normal Menses, Spotting Between Cycles , S/P Hysterectomy, Menopausal, Post Menopausal, Premenarche, Abnormal Vaginal Bleeding, Dysmenorrhea, Dyspareunia, Genital Lesions, Genital Pruritis, Pelvic Pain, Prolapse Symptoms, Sexual Dysfunction, Vaginal Discharge, Vaginal Dryness , Vaginal Odor, Vaginal Pruritis, Other - Menstruation Menstruation: absent: As Per HPI, Amenorrhea, Amenorrhea/ Control, Currently Menstual, Cycle <21 Days, Cycle >35 Days, Cycle Variable, Menses 1-7 Days, Menses >/= 8 Days, Menses Variable, Cycle > 4 Weeks Between, No Menses for 6 Months, Heavy Menses, Light Menses, Normal Menses, Spotting Between Cycles , S/P Hysterectomy, Menopausal, Post Menopausal, Premenarche, Abnormal Vaginal Bleeding, Dysmenorrhea, Other - Musculoskeletal Musculoskeletal: As Per HPI - Integumentary Integumentary: As Per HPI - Neurological Neurological: As Per HPI - Psychiatric Psychiatric: absent: As Per HPI, Abnormal Sleep Pattern, Anhedonia, Anxiety, Auditory Hallucinations, Behavioral Changes, Change in Appetite, Change in Libido, Confusion, Depression, Difficulty Concentrating, Hallucinations, Homicidal Ideation, Hopelessness, Irritability, Memory Loss, Mood Swings, Panic Attacks, Paranoia, Suicidal Ideation, Visual Hallucinations, Tactile Hallucinations, Other - Endocrine Endocrine: absent: As Per HPI, Change in Body Appearance, Change in Libido, Cold Intolorance, Deepening of Voice, Excessive Sweating, Fatigue, Flushing, Heat Intolorance, Increase in Ring/Shoe/Hat Size, Palpitations, Polydipsia, Polyphagia, Polyuria, Other - Hematologic/Lymphatic Hematologic: absent: As Per HPI, Easy Bleeding, Easy Bruising, Lymphadenopathy, Other Past Patient History - Past Social History Smoking Status: Unknown If Ever Smoked - CARDIAC Hx Hypertension: Yes - NEUROLOGICAL Other/Comment: aphasic - INTEGUMENTARY Other/Comment: with healed right heel and sacral decub. - MUSCULOSKELETAL/RHEUMATOLOGICAL Hx Falls: No - GASTROINTESTINAL Other/Comment: with gtt intact. - GENITOURINARY/GYNECOLOGICAL Other/Comment: with 2way valdez cath intact. - PSYCHIATRIC Hx Substance Use: No - SURGICAL HISTORY Hx Surgeries: Yes Other/Comment: FEEDING TUBE INSERTION - ANESTHESIA Hx Anesthesia: Yes Hx Anesthesia Reactions: No Hx Malignant Hyperthermia: No Has any member of the family had a problem w/ anesthesia?: No Meds Allergies/Adverse Reactions: Allergies Allergy/AdvReac Type Severity Reaction Status Date / Time Unobtainable Allergy Unverified 12/14/16 11:54 - Medications Medications: Current Medications Amlodipine Besylate (Norvasc) 10 mg PEG DAILY [facility] Last Admin: 12/16/16 09:31 Dose: 10 mg Famotidine (Pepcid) 40 mg PEG DAILY [facility] Last Admin: 12/16/16 09:31 Dose: 40 mg Fluconazole (Diflucan) 100 mg PEG DAILY [facility] Last Admin: 12/16/16 09:32 Dose: 100 mg Heparin Sodium (Porcine) (Heparin) 5,000 units SC Q12H [facility] Last Admin: 12/16/16 09:30 Dose: 5,000 units Ceftriaxone Sodium 1 gm/ (Sodium Chloride) 100 mls @ 100 mls/hr IVPB DAILY [facility] Last Admin: 12/16/16 09:31 Dose: 100 mls/hr Sodium Chloride (Sodium Chloride 0.9%) 1,000 mls @ 60 mls/hr IV .[id number] [facility] Last Admin: 12/16/16 05:19 Dose: 60 mls/hr Metoprolol Tartrate (Lopressor) 25 mg PEG BID [facility] Last Admin: 12/16/16 09:32 Dose: 25 mg Saccharomyces Boulardii (Florastor) 250 mg PEG BID [facility] Last Admin: 12/16/16 09:31 Dose: 250 mg Physical Exam - Constitutional Appears: Non-toxic, Confused, Cachectic, Chronically Ill - Head Exam Head Exam: ATRAUMATIC, NORMAL INSPECTION, NORMOCEPHALIC - Eye Exam Eye Exam: EOMI, PERRL. absent: Scleral icterus Pupil Exam: NORMAL ACCOMODATION - ENT Exam ENT Exam: Mucous Membranes Dry, Normal External Ear Exam - Neck Exam Neck exam: Negative for: Lymphadenopathy, Thyromegaly - Respiratory Exam Respiratory Exam: Decreased Breath Sounds, Rhonchi - Cardiovascular Exam Cardiovascular Exam: REGULAR RHYTHM, +S1, +S2 - GI/Abdominal Exam GI & Abdominal Exam: Diminished Bowel Sounds, Soft. absent: Tenderness - Rectal Exam Rectal Exam: Deferred - Exam Exam: NORMAL INSPECTION - Extremities Exam Extremities exam: Positive for: pedal pulses present. Negative for: calf tenderness, pedal edema, tenderness Additional comments: rue and rle contracted - Back Exam Back exam: absent: CVA tenderness (L), CVA tenderness (R) - Neurological Exam Neurological exam: Altered, CN II-XII Intact Additional comments: right sided weak - Psychiatric Exam Psychiatric exam: Depressed - Skin Skin Exam: Dry Results - Vital Signs Recent Vital Signs: Last Vital Signs Temp 98.3 F 12/16/16 10:03 Pulse 90 12/16/16 10:03 Resp 20 12/16/16 10:03 BP 119/78 12/16/16 10:03 Pulse Ox 94 L 12/16/16 10:03 - Labs Result Diagrams: 12/16/16 08:00 12/16/16 08:00 Labs: Laboratory Results - last 24 hr 12/15/16 12/15/16 12/16/16 16:19 21:34 00:24 WBC RBC Hgb Hct MCV MCH MCHC RDW Plt Count MPV Neut % (Auto) Lymph % (Auto) [place] % (Auto) Eos % (Auto) Baso % (Auto) Neut # Lymph # [place] # Eos # Baso # Sodium Potassium Chloride Carbon Dioxide Anion Gap BUN Creatinine Est GFR ( Amer) Est GFR (Non-Af Amer) POC Glucose (mg/dL) 109 92 114 H Random Glucose Calcium Phosphorus Magnesium Total Bilirubin AST ALT Alkaline Phosphatase Total Protein Albumin Globulin Albumin/Globulin Ratio 12/16/16 12/16/16 12/16/16 06:42 08:00 08:00 WBC 8.7 RBC 3.92 Hgb 10.9 L Hct 33.5 L MCV 85.4 MCH 27.8 MCHC 32.5 L RDW 16.9 H Plt Count 299 MPV 8.8 Neut % (Auto) 74.3 Lymph % (Auto) 16.0 L [place] % (Auto) 7.5 Eos % (Auto) 1.8 Baso % (Auto) 0.4 Neut # 6.5 Lymph # 1.4 [place] # 0.7 Eos # 0.2 Baso # 0.0 Sodium 138 Potassium 3.7 Chloride 105 Carbon Dioxide 21 L Anion Gap 16 BUN 13 Creatinine 0.4 L Est GFR ( Amer) > 60 Est GFR (Non-Af Amer) > 60 POC Glucose (mg/dL) 127 H Random Glucose 106 H Calcium 8.5 L Phosphorus 3.4 Magnesium 1.6 Total Bilirubin 0.6 AST 17 ALT 31 Alkaline Phosphatase 109 Total Protein 6.5 Albumin 2.9 L Globulin 3.6 Albumin/Globulin Ratio 0.8 L 12/16/16 12/16/16 11:31 16:03 WBC RBC Hgb Hct MCV MCH MCHC RDW Plt Count MPV Neut % (Auto) Lymph % (Auto) [place] % (Auto) Eos % (Auto) Baso % (Auto) Neut # Lymph # [place] # Eos # Baso # Sodium Potassium Chloride Carbon Dioxide Anion Gap BUN Creatinine Est GFR ( Amer) Est GFR (Non-Af Amer) POC Glucose (mg/dL) 108 111 H Random Glucose Calcium Phosphorus Magnesium Total Bilirubin AST ALT Alkaline Phosphatase Total Protein Albumin Globulin Albumin/Globulin Ratio Assessment & Plan - Assessment and Plan (Free Text) Assessment: 81 yo female with PMH of CVA HTN and OBS admitted with malfunctioning GT and valdez which has been changed no evidence of fever or ongoing sepsis Plan: U/A significant for nitrates and leuk esterase as well as PMN's despite not meeting sepsis criteria, UTI can not be ruled out and she is currently on rocephin which at best is bacteriostatic for the bacteria which were isolated a repeat culture is also growing G+ organisms will add Vanco/ Merrem for short course rx consider removal of valdez if pt can tolerate and family agreeable
[2016-12-16] MEDS: Meropenem 500 MG in Sodium Chloride 0.9% 100 ML IVPB SCH (17:43)
--- NOTE | 2016-12-16 17:56 | CP.PCM.PN ---
<Yordy Urbina - Last Filed: 12/16/16 18:15> Subjective - Date & Time of Evaluation Date of Evaluation: 12/16/16 Time of Evaluation: 17:53 - Subjective Subjective: PGY-[address] Swain HPI: Patient seen and examined at bedside. Patient is nonverbal but follows verbal commands. Objective - Vital Signs/Intake and Output Vital Signs (last 24 hours): Temp Pulse Resp BP Pulse Ox 97.9 F 87 20 115/77 98 12/16/16 16:00 12/16/16 16:00 12/16/16 16:00 12/16/16 17:31 12/16/16 16:00 - Medications Medications: Current Medications Amlodipine Besylate (Norvasc) 10 mg PEG DAILY [facility] Last Admin: 12/16/16 09:31 Dose: 10 mg Famotidine (Pepcid) 40 mg PEG DAILY [facility] Last Admin: 12/16/16 09:31 Dose: 40 mg Fluconazole (Diflucan) 100 mg PEG DAILY [facility] Last Admin: 12/16/16 09:32 Dose: 100 mg Heparin Sodium (Porcine) (Heparin) 5,000 units SC Q12H [facility] Last Admin: 12/16/16 09:30 Dose: 5,000 units Sodium Chloride (Sodium Chloride 0.9%) 1,000 mls @ 60 mls/hr IV .[id number] [facility] Last Admin: 12/16/16 05:19 Dose: 60 mls/hr Vancomycin HCl 500 mg/ Sodium (Chloride) 100 mls @ 100 mls/hr IVPB Q6 [facility] Last Admin: 12/16/16 17:43 Dose: 100 mls/hr Meropenem 500 mg/ Sodium (Chloride) 100 mls @ 100 mls/hr IVPB Q8H [facility] Last Admin: 12/16/16 17:43 Dose: 100 mls/hr Metoprolol Tartrate (Lopressor) 25 mg PEG BID [facility] Last Admin: 12/16/16 17:31 Dose: 25 mg Saccharomyces Boulardii (Florastor) 250 mg PEG BID [facility] Last Admin: 12/16/16 17:31 Dose: 250 mg - Constitutional Appears: Non-toxic, Unkempt - Head Exam Head Exam: ATRAUMATIC, NORMAL INSPECTION - Eye Exam Eye Exam: absent: Conjunctival injection, Periorbital swelling, Periorbital tenderness - ENT Exam ENT Exam: Mucous Membranes Moist - Respiratory Exam Respiratory Exam: Clear to Ausculation Bilateral, NORMAL BREATHING PATTERN. absent: Rales, Rhonchi, Wheezes - Cardiovascular Exam Cardiovascular Exam: REGULAR RHYTHM, RRR. absent: Bradycardia, Tachycardia, Gallop, Rubs, Murmur - GI/Abdominal Exam GI & Abdominal Exam: Soft. absent: Distended, Firm, Guarding, Tenderness, Hernia, Mass, Organomegaly - Exam Additional comments: valdez present. no blood in urine - Neurological Exam Neurological Exam: Alert, Awake (contracted) - Psychiatric Exam Psychiatric exam: Normal Affect, Normal Mood - Skin Skin Exam: Dry, Intact, Normal Color, Warm Assessment and Plan - Assessment and Plan (Free Text) Assessment: UTI * Started on NS 100cc/hr * Started Vanco/Merrem per ID * UC = Gram + cocci, pseudomonas, E. facilis Oral Thrush * Started on Diflucan 100mg PEG daily starting 12/15/16 Malfunctioning PEG Tube * PEG is OKAY to use * Restarted TUBE feedings @ 40cc/hr patient gets 60cc/hr at home. HTN * Restarted home medications: Norvasc 10mg PEG daily, Lopressor 25mg PEG BID Prophylactic Measures * GI PPX: Pepcid 40mg PEG daily * DVT PPX: Heparin [id number], SCDs * Continue PEG feedings, no pleasure feedings * Q2 Turning and repositioning * Pending medical records from PMD's office * Palliative care consulted for goals of care, will reach out to family to determine extent of care they would like <Josie Swain V - Last Filed: 12/17/16 09:59> Objective - Vital Signs/Intake and Output Vital Signs (last 24 hours): Temp Pulse Resp BP Pulse Ox 98.0 F 95 H 20 117/63 97 12/17/16 08:18 12/17/16 08:18 12/17/16 08:18 12/17/16 09:18 12/17/16 08:18 Intake and Output: 12/17/16 12/17/16 06:59 18:59 Intake Total 2060 Output Total 1050 Balance 1010 - Medications Medications: Current Medications Amlodipine Besylate (Norvasc) 10 mg PEG DAILY [facility] Last Admin: 12/17/16 09:18 Dose: 10 mg Famotidine (Pepcid) 40 mg PEG DAILY [facility] Last Admin: 12/17/16 09:18 Dose: 40 mg Fluconazole (Diflucan) 100 mg PEG DAILY [facility] Last Admin: 12/17/16 09:18 Dose: 100 mg Heparin Sodium (Porcine) (Heparin) 5,000 units SC Q12H [facility] Last Admin: 12/17/16 09:17 Dose: 5,000 units Sodium Chloride (Sodium Chloride 0.9%) 1,000 mls @ 60 mls/hr IV .[id number] [facility] Last Admin: 12/17/16 02:28 Dose: 60 mls/hr Vancomycin HCl 500 mg/ Sodium (Chloride) 100 mls @ 100 mls/hr IVPB Q6 [facility] Last Admin: 12/17/16 05:15 Dose: 100 mls/hr Meropenem 500 mg/ Sodium (Chloride) 100 mls @ 100 mls/hr IVPB Q8H [facility] Last Admin: 12/17/16 09:29 Dose: 100 mls/hr Metoprolol Tartrate (Lopressor) 25 mg PEG BID [facility] Last Admin: 12/17/16 09:18 Dose: 25 mg Saccharomyces Boulardii (Florastor) 250 mg PEG BID [facility] Last Admin: 12/17/16 09:18 Dose: 250 mg - Labs Labs: 12/17/16 07:52 12/17/16 07:52 Attending/Attestation - Attestation I have personally seen and examined this patient.: Yes I have fully participated in the care of the patient.: Yes I have reviewed all pertinent clinical information, including history, physical exam and plan: Yes Notes (Text): This is late computer entry for 12/16/16 Patient seen, examined and case discussed with day-time resident. Patient's peg tube is functioning. No over night issues per nursing staff. P{ atient's urine cultures are showing urinary tract infection which is resistant to empiric Rocephin. Will change patient status to inpatient and consult infectious disease of IV abx recommendations. Discussed with speech and swallow, Shanice, patient has extensive thrush, recommended pleasure feeds. Assessment/Plan 1) Malfunctioning PEG Tube * Patient was evaluated by GI, PEG was flushed and is functional. * PEG is OKAY to use * Restarted TUBE feedings @ 40cc/hr patient gets 60cc/hr at home. 2) Urinary Tract Infection * Infectious disease (Dr. Matt) on board-->help appreciated * NS 100cc/hr * Urine Culture (12/14/16): Pseudomonas Aeruginosa and Enterococcus Faecalisis * Urine culture (12/15/16): Enterococcus Faecalis * Blood culture (12/14/16): no growth for 48 hours X2 * Meropenem 500mg IVPB Q8 hours (active since 12/16/16) * Vancomycin 500mg IVQ 8 hours (active since 12/16/16) * Florastor 250mg PO bid * Came with Valdez on admission 3) Oral Thrush * Diflucan 200mg PEG STAT on admission * Started on Diflucan 100mg PEG daily starting 12/15/16 4) Hypertension * Restarted home medications: Norvasc 10mg PEG daily, Lopressor 25mg PEG BID 5) Prophylactic Measures * GI PPX: Pepcid 40mg PEG daily * DVT PPX: Heparin [id number], SCDs * NPO until Swallow Eval * Peg feedings resumed * Palliative care * Turn Q 2hours
[2016-12-17] MEDS: Meropenem 500 MG in Sodium Chloride 0.9% 100 ML IVPB SCH ×3 (00:59→16:55)
[2016-12-17] MEDS: Sodium Chloride 0.9% 1,000 ML IV SCH ×2 (02:28→16:27)
[2016-12-17 08:01] LABS: BASO % 0.4 % (0.0-2.0); EOS # 0.2 K/uL (0.0-0.7); EOS % 2.2 % (0.0-4.0); HEMOGLOBIN 10.9 g/dL (11.0-16.0); LYMPH # 1.2 K/uL (1.0-4.3); LYMPH % 17.7 % (20.0-40.0); MEAN CELL VOLUME 84.2 fL (81.0-99.0); MEAN CORPUSCULAR HEMOGLOBIN 27.7 pg (27.0-31.0); MEAN CORPUSCULAR HGB CONC 32.9 g/dL (33.0-37.0); MEAN PLATELET VOLUME 8.4 fL (7.2-11.7); MONO # 0.6 K/uL (0.0-0.8); MONO % 8.1 % (0.0-10.0); NEUT % 71.6 % (50.0-75.0); RBC 3.93 Mil/uL (3.80-5.20); RED CELL DISTRIBUTION WIDTH 17.1 % (11.5-14.5); WHITE BLOOD COUNT 6.9 K/uL (4.8-10.8)
[2016-12-17 08:09] LABS: ALBUMIN 2.7 g/dL (3.5-5.0)
[2016-12-17 08:12] LABS: ALB/GLOB RATIO 0.8 (1.0-2.1); AST/SGOT 25 U/L (14-36); BLOOD UREA NITROGEN 11 mg/dL (7-17); GFR AFRICAN-AMERICAN > 60; GFR NON-AFRICAN AMERICAN > 60
[2016-12-17 08:13] LABS: ALT/SGPT 28 U/L (9-52); CALCIUM 8.4 mg/dl (8.6-10.4); MAGNESIUM 1.6 mg/dL (1.6-2.3)
[2016-12-17] MEDS: Saccharomyces Boulardi 250 mg Cap PEG SCH ×2 (09:18→17:00)
--- NOTE | 2016-12-17 19:18 | CP.PCM.PN ---
Subjective - Date & Time of Evaluation Date of Evaluation: 12/17/16 Time of Evaluation: 07:00 - Subjective Subjective: afebrile opens eyes following NAD Objective - Vital Signs/Intake and Output Vital Signs (last 24 hours): Temp Pulse Resp BP Pulse Ox 98.9 F 88 20 142/70 95 12/17/16 16:00 12/17/16 16:00 12/17/16 16:00 12/17/16 17:00 12/17/16 16:00 Intake and Output: 12/17/16 12/18/16 18:59 06:59 Output Total 800 Balance -800 - Medications Medications: Current Medications Amlodipine Besylate (Norvasc) 10 mg PEG DAILY [facility] Last Admin: 12/17/16 09:18 Dose: 10 mg Famotidine (Pepcid) 40 mg PEG DAILY [facility] Last Admin: 12/17/16 09:18 Dose: 40 mg Fluconazole (Diflucan) 100 mg PEG DAILY [facility] Last Admin: 12/17/16 09:18 Dose: 100 mg Heparin Sodium (Porcine) (Heparin) 5,000 units SC Q12H [facility] Last Admin: 12/17/16 09:17 Dose: 5,000 units Sodium Chloride (Sodium Chloride 0.9%) 1,000 mls @ 60 mls/hr IV .[id number] [facility] Last Admin: 12/17/16 16:27 Dose: Not Given Vancomycin HCl 500 mg/ Sodium (Chloride) 100 mls @ 100 mls/hr IVPB Q6 [facility] Last Admin: 12/17/16 17:54 Dose: 100 mls/hr Meropenem 500 mg/ Sodium (Chloride) 100 mls @ 100 mls/hr IVPB Q8H [facility] Last Admin: 12/17/16 16:55 Dose: 100 mls/hr Metoprolol Tartrate (Lopressor) 25 mg PEG BID [facility] Last Admin: 12/17/16 17:00 Dose: 25 mg Saccharomyces Boulardii (Florastor) 250 mg PEG BID [facility] Last Admin: 12/17/16 17:00 Dose: 250 mg - Labs Labs: 12/17/16 07:52 12/17/16 07:52 - Constitutional Appears: Non-toxic - Head Exam Head Exam: NORMOCEPHALIC - Eye Exam Eye Exam: PERRL. absent: Scleral icterus - ENT Exam ENT Exam: Mucous Membranes Dry - Neck Exam Neck Exam: absent: Lymphadenopathy - Respiratory Exam Respiratory Exam: Decreased Breath Sounds - Cardiovascular Exam Cardiovascular Exam: REGULAR RHYTHM - GI/Abdominal Exam GI & Abdominal Exam: Distended - Rectal Exam Rectal Exam: Deferred - Exam Exam: NORMAL INSPECTION - Extremities Exam Extremities Exam: absent: Pedal Edema - Back Exam Back Exam: absent: CVA tenderness (L), CVA tenderness (R) - Neurological Exam Neurological Exam: Alert Additional comments: right sided contracted - Skin Skin Exam: Dry Assessment and Plan - Assessment and Plan (Free Text) Plan: cont rx for uti
--- NOTE | 2016-12-17 21:32 | CP.PCM.PN ---
<Yordy Urbina - Last Filed: 12/17/16 21:28> Subjective - Date & Time of Evaluation Date of Evaluation: 12/17/16 Time of Evaluation: 21:28 - Subjective Subjective: PGY-[address] Swain HPI: Patient seen and examined at bedside. Patient is nonverbal but responds to my voice. ROS was unattainable. Objective - Vital Signs/Intake and Output Vital Signs (last 24 hours): Temp Pulse Resp BP Pulse Ox 98.9 F 88 20 142/70 95 12/17/16 16:00 12/17/16 16:00 12/17/16 16:00 12/17/16 17:00 12/17/16 16:00 Intake and Output: 12/17/16 12/18/16 18:59 06:59 Output Total 800 Balance -800 - Medications Medications: Current Medications Amlodipine Besylate (Norvasc) 10 mg PEG DAILY [facility] Last Admin: 12/17/16 09:18 Dose: 10 mg Famotidine (Pepcid) 40 mg PEG DAILY [facility] Last Admin: 12/17/16 09:18 Dose: 40 mg Fluconazole (Diflucan) 100 mg PEG DAILY [facility] Last Admin: 12/17/16 09:18 Dose: 100 mg Heparin Sodium (Porcine) (Heparin) 5,000 units SC ONCE ONE Stop: 12/17/16 21:31 Sodium Chloride (Sodium Chloride 0.9%) 1,000 mls @ 60 mls/hr IV .[id number] [facility] Last Admin: 12/17/16 16:27 Dose: Not Given Vancomycin HCl 500 mg/ Sodium (Chloride) 100 mls @ 100 mls/hr IVPB Q6 [facility] Last Admin: 12/17/16 17:54 Dose: 100 mls/hr Meropenem 500 mg/ Sodium (Chloride) 100 mls @ 100 mls/hr IVPB Q8H [facility] Last Admin: 12/17/16 16:55 Dose: 100 mls/hr Metoprolol Tartrate (Lopressor) 25 mg PEG BID [facility] Last Admin: 12/17/16 17:00 Dose: 25 mg Saccharomyces Boulardii (Florastor) 250 mg PEG BID [facility] Last Admin: 12/17/16 17:00 Dose: 250 mg - Labs Labs: 12/17/16 07:52 12/17/16 07:52 - Constitutional Appears: No Acute Distress, Cachectic (contracted) - Head Exam Head Exam: ATRAUMATIC, NORMAL INSPECTION - Eye Exam Eye Exam: Normal appearance. absent: Conjunctival injection, EOMI, Nystagmus, Periorbital swelling, Periorbital tenderness Pupil Exam: absent: Fixed, Irregular - ENT Exam ENT Exam: Mucous Membranes Moist. absent: Mucous Membranes Dry - Respiratory Exam Respiratory Exam: Clear to Ausculation Bilateral. absent: Rhonchi, Wheezes, Respiratory Distress, Stridor - Cardiovascular Exam Cardiovascular Exam: REGULAR RHYTHM, RRR. absent: Irregular Rhythm, JVD - GI/Abdominal Exam GI & Abdominal Exam: Soft, Normal Bowel Sounds. absent: Bruit, Distended, Firm , Guarding, Rigid, Tenderness - Extremities Exam Extremities Exam: absent: Calf Tenderness, Joint Swelling, Pedal Edema, Tenderness Additional comments: contracted - Skin Skin Exam: Dry, Intact, Normal Color, Warm Assessment and Plan - Assessment and Plan (Free Text) Assessment: 1) Malfunctioning PEG Tube * Patient was evaluated by GI, PEG was flushed and is functional. * PEG is OKAY to use * Restarted TUBE feedings @ 40cc/hr patient gets 60cc/hr at home. 2) Urinary Tract Infection * Infectious disease (Dr. Matt) on board-->help appreciated * NS 100cc/hr * Urine Culture (12/14/16): Pseudomonas Aeruginosa and Enterococcus Faecalisis * Urine culture (12/15/16): Enterococcus Faecalis * Blood culture (12/14/16): no growth for 48 hours X2 * Meropenem 500mg IVPB Q8 hours (active since 12/16/16) * Vancomycin 500mg IV Q6 hours (active since 12/16/16) * Florastor 250mg PO bid * Came with Valdez on admission * exchanged valdez * monitor renal function 3) Oral Thrush * Diflucan 200mg PEG STAT on admission * Started on Diflucan 100mg PEG daily starting 12/15/16 4) Hypertension * Restarted home medications: Norvasc 10mg PEG daily, Lopressor 25mg PEG BID 5) Prophylactic Measures * GI PPX: Pepcid 40mg PEG daily * DVT PPX: Heparin 5000 q12, SCDs * NPO until Swallow Eval * Peg feedings resumed * Palliative care * Turn Q 2hours <Josie Swain V - Last Filed: 12/22/16 14:02> Objective - Vital Signs/Intake and Output Vital Signs (last 24 hours): Temp Pulse Resp BP Pulse Ox 98.5 F 84 20 137/78 100 12/20/16 16:44 12/20/16 16:44 12/20/16 16:44 12/20/16 17:31 12/20/16 16:44 - Labs Labs: 12/20/16 07:15 12/20/16 07:15 Attending/Attestation - Attestation I have personally seen and examined this patient.: Yes I have fully participated in the care of the patient.: Yes I have reviewed all pertinent clinical information, including history, physical exam and plan: Yes Notes (Text): This is late computer entry fur 12/17/16. Patient seen, examined, and case discussed with day-time resident. Patient is currently on IV antibiotics. Re-emphasized with nursing staff for turn Q 2 hours to prevent sacral decub since patient is bed bound. Ordered for valdez exchanged.
[2016-12-18] MEDS: Meropenem 500 MG in Sodium Chloride 0.9% 100 ML IVPB SCH ×3 (01:07→16:54)
[2016-12-18 07:53] LABS: BASO % 0.6 % (0.0-2.0); EOS # 0.2 K/uL (0.0-0.7); HEMOGLOBIN 10.7 g/dL (11.0-16.0); LYMPH # 1.2 K/uL (1.0-4.3); LYMPH % 14.2 % (20.0-40.0); MEAN CELL VOLUME 84.4 fL (81.0-99.0); MEAN CORPUSCULAR HEMOGLOBIN 27.5 pg (27.0-31.0); MEAN CORPUSCULAR HGB CONC 32.6 g/dL (33.0-37.0); MEAN PLATELET VOLUME 8.6 fL (7.2-11.7); MONO # 0.7 K/uL (0.0-0.8); MONO % 8.9 % (0.0-10.0); NEUT % 73.3 % (50.0-75.0); RBC 3.91 Mil/uL (3.80-5.20); RED CELL DISTRIBUTION WIDTH 16.8 % (11.5-14.5); WHITE BLOOD COUNT 8.1 K/uL (4.8-10.8)
[2016-12-18 08:13] LABS: ALBUMIN 2.8 g/dL (3.5-5.0)
[2016-12-18 08:16] LABS: ALB/GLOB RATIO 0.9 (1.0-2.1); ALT/SGPT 37 U/L (9-52); AST/SGOT 23 U/L (14-36); BLOOD UREA NITROGEN 8 mg/dL (7-17); GFR AFRICAN-AMERICAN > 60; GFR NON-AFRICAN AMERICAN > 60
[2016-12-18 08:17] LABS: CALCIUM 8.4 mg/dl (8.6-10.4); MAGNESIUM 1.5 mg/dL (1.6-2.3)
[2016-12-18] MEDS: Sodium Chloride 0.9% 1,000 ML IV SCH (08:23)
[2016-12-18] MEDS: Saccharomyces Boulardi 250 mg Cap PEG SCH ×2 (10:18→18:04)
--- NOTE | 2016-12-18 19:03 | CP.PCM.PN ---
Subjective - Date & Time of Evaluation Date of Evaluation: 12/18/16 Time of Evaluation: 09:00 - Subjective Subjective: doing better on IV rx remains lethargic bed bound possible d/c on wednesday Objective - Vital Signs/Intake and Output Vital Signs (last 24 hours): Temp Pulse Resp BP Pulse Ox 97.7 F 86 20 126/74 98 12/18/16 16:00 12/18/16 16:00 12/18/16 16:00 12/18/16 18:06 12/18/16 16:00 Intake and Output: 12/18/16 12/19/16 18:59 06:59 Intake Total 1300 Output Total 400 Balance 900 - Medications Medications: Current Medications Amlodipine Besylate (Norvasc) 10 mg PEG DAILY [facility] Last Admin: 12/18/16 10:18 Dose: 10 mg Aspirin (Aspirin Chewable) 81 mg PEG DAILY [facility] Famotidine (Pepcid) 40 mg PEG DAILY [facility] Last Admin: 12/18/16 10:18 Dose: 40 mg Fluconazole (Diflucan) 100 mg PEG DAILY [facility] Last Admin: 12/18/16 10:18 Dose: 100 mg Heparin Sodium (Porcine) (Heparin) 5,000 units SC Q8 [facility] Last Admin: 12/18/16 16:02 Dose: 5,000 units Vancomycin HCl 500 mg/ Sodium (Chloride) 100 mls @ 100 mls/hr IVPB Q6 [facility] Last Admin: 12/18/16 18:04 Dose: 100 mls/hr Meropenem 500 mg/ Sodium (Chloride) 100 mls @ 100 mls/hr IVPB Q8H [facility] Last Admin: 12/18/16 16:54 Dose: 100 mls/hr Metoprolol Tartrate (Lopressor) 25 mg PEG BID [facility] Last Admin: 12/18/16 18:06 Dose: 25 mg Rosuvastatin Calcium (Crestor) 5 mg PEG HS [facility] Saccharomyces Boulardii (Florastor) 250 mg PEG BID [facility] Last Admin: 12/18/16 18:04 Dose: 250 mg - Labs Labs: 12/18/16 07:15 12/18/16 07:15 - Constitutional Appears: Non-toxic, Cachectic, Chronically Ill - Head Exam Head Exam: NORMOCEPHALIC - Eye Exam Eye Exam: PERRL. absent: Scleral icterus - ENT Exam ENT Exam: Mucous Membranes Dry - Neck Exam Neck Exam: absent: Lymphadenopathy - Respiratory Exam Respiratory Exam: Decreased Breath Sounds, Rhonchi - Cardiovascular Exam Cardiovascular Exam: REGULAR RHYTHM, +S1, +S2 - GI/Abdominal Exam GI & Abdominal Exam: Distended, Soft - Rectal Exam Rectal Exam: Deferred - Exam Exam: NORMAL INSPECTION Assessment and Plan (1) UTI (urinary tract infection) Status: Acute (2) UTI (urinary tract infection) Status: Acute - Assessment and Plan (Free Text) Assessment: cont iv rx
--- NOTE | 2016-12-18 20:05 | CP.PCM.PN ---
Subjective - Date & Time of Evaluation Date of Evaluation: 12/18/16 Time of Evaluation: 07:10 - Subjective Subjective: PGY-[address] Mcpherson Patient seen and examined at bedside. Due to patient's non-verbal status, ROS unable to be ascertained. Patient responsive to sound and touch. Objective - Vital Signs/Intake and Output Vital Signs (last 24 hours): Temp Pulse Resp BP Pulse Ox 97.7 F 86 20 126/74 98 12/18/16 16:00 12/18/16 16:00 12/18/16 16:00 12/18/16 18:06 12/18/16 16:00 Intake and Output: 12/18/16 12/19/16 18:59 06:59 Intake Total 1300 Output Total 400 Balance 900 - Medications Medications: Current Medications Amlodipine Besylate (Norvasc) 10 mg PEG DAILY [facility] Last Admin: 12/18/16 10:18 Dose: 10 mg Aspirin (Aspirin Chewable) 81 mg PEG DAILY [facility] Famotidine (Pepcid) 40 mg PEG DAILY [facility] Last Admin: 12/18/16 10:18 Dose: 40 mg Fluconazole (Diflucan) 100 mg PEG DAILY [facility] Last Admin: 12/18/16 10:18 Dose: 100 mg Heparin Sodium (Porcine) (Heparin) 5,000 units SC Q8 [facility] Last Admin: 12/18/16 16:02 Dose: 5,000 units Vancomycin HCl 500 mg/ Sodium (Chloride) 100 mls @ 100 mls/hr IVPB Q6 [facility] Last Admin: 12/18/16 18:04 Dose: 100 mls/hr Meropenem 500 mg/ Sodium (Chloride) 100 mls @ 100 mls/hr IVPB Q8H [facility] Last Admin: 12/18/16 16:54 Dose: 100 mls/hr Metoprolol Tartrate (Lopressor) 25 mg PEG BID [facility] Last Admin: 12/18/16 18:06 Dose: 25 mg Rosuvastatin Calcium (Crestor) 5 mg PEG HS [facility] Saccharomyces Boulardii (Florastor) 250 mg PEG BID [facility] Last Admin: 12/18/16 18:04 Dose: 250 mg - Labs Labs: 12/18/16 07:15 12/18/16 07:15 - Constitutional Appears: No Acute Distress - Head Exam Head Exam: ATRAUMATIC, NORMAL INSPECTION, NORMOCEPHALIC - ENT Exam ENT Exam: Mucous Membranes Dry - Respiratory Exam Respiratory Exam: Decreased Breath Sounds. absent: Rales, Rhonchi, Wheezes - Cardiovascular Exam Cardiovascular Exam: REGULAR RHYTHM, +S1, +S2 - GI/Abdominal Exam GI & Abdominal Exam: Soft, Normal Bowel Sounds - Extremities Exam Additional comments: Severe contractures of all 4 extremities. - Neurological Exam Neurological Exam: Awake - Skin Skin Exam: Abrasion, Dry Assessment and Plan - Assessment and Plan (Free Text) Plan: 1) Malfunctioning PEG Tube * Patient was evaluated by GI, PEG was flushed and is functional. * PEG is OKAY to use * Restarted TUBE feedings @ 40cc/hr patient gets 60cc/hr at home. 2) Urinary Tract Infection * Infectious disease (Dr. Matt) on board-->help appreciated * NS 100cc/hr * Urine Culture (12/14/16): Pseudomonas Aeruginosa and Enterococcus Faecalisis * Urine culture (12/15/16): Enterococcus Faecalis * Blood culture (12/14/16): no growth for 48 hours X2 * Meropenem 500mg IVPB Q8 hours (active since 12/16/16) * Vancomycin 500mg IV Q6 hours (active since 12/16/16) * Florastor 250mg PO bid * Came with Valdez on admission * exchanged valdez * monitor renal function 3) Oral Thrush * Diflucan 200mg PEG STAT on admission * Started on Diflucan 100mg PEG daily starting 12/15/16 4) Hypertension * Restarted home medications: Norvasc 10mg PEG daily, Lopressor 25mg PEG BID 5) History of stroke * Lipid profile * ASA 81 mg PEG * Crestor 5 mg PEG 6) Prophylactic Measures * GI PPX: Pepcid 40mg PEG daily * DVT PPX: Heparin 5000 q12, SCDs * NPO until Swallow Eval * Peg feedings resumed * Palliative care * Turn Q 2hours Per conversation with Dr. Matt, likely discharge date is Wednesday. Case discussed with Dr. Vida Kulkarni PGY1
[2016-12-19] MEDS: Meropenem 500 MG in Sodium Chloride 0.9% 100 ML IVPB SCH ×3 (00:15→17:38)
[2016-12-19 07:21] LABS: BASO % 0.4 % (0.0-2.0); EOS # 0.2 K/uL (0.0-0.7); EOS % 2.6 % (0.0-4.0); HEMOGLOBIN 11.4 g/dL (11.0-16.0); LYMPH # 1.2 K/uL (1.0-4.3); LYMPH % 15.6 % (20.0-40.0); MEAN CELL VOLUME 84.9 fL (81.0-99.0); MEAN CORPUSCULAR HEMOGLOBIN 27.6 pg (27.0-31.0); MEAN CORPUSCULAR HGB CONC 32.5 g/dL (33.0-37.0); MEAN PLATELET VOLUME 8.1 fL (7.2-11.7); MONO # 0.6 K/uL (0.0-0.8); MONO % 7.5 % (0.0-10.0); NEUT # 5.8 K/uL (1.8-7.0); NEUT % 73.9 % (50.0-75.0); RBC 4.14 Mil/uL (3.80-5.20); RED CELL DISTRIBUTION WIDTH 16.7 % (11.5-14.5); WHITE BLOOD COUNT 7.9 K/uL (4.8-10.8)
[2016-12-19 07:36] LABS: GFR AFRICAN-AMERICAN > 60; GFR NON-AFRICAN AMERICAN > 60
[2016-12-19 07:37] LABS: ALB/GLOB RATIO 0.9 (1.0-2.1); ALT/SGPT 48 U/L (9-52); AST/SGOT 29 U/L (14-36); BLOOD UREA NITROGEN 9 mg/dL (7-17); CALCIUM 8.7 mg/dl (8.6-10.4); MAGNESIUM 1.5 mg/dL (1.6-2.3)
[2016-12-19 07:38] LABS: HDL CHOLESTEROL 26 mg/dL (30-70)
[2016-12-19 07:55] LABS: LDL CHOLESTEROL 100 mg/dL (0-129)
--- NOTE | 2016-12-19 08:46 | CP.PCM.PN ---
Subjective - Date & Time of Evaluation Date of Evaluation: 12/19/16 Time of Evaluation: 07:30 - Subjective Subjective: Patient seen and examined at bedside. Patient is awake and responsive to my voice. Patient showing signs of clinical improvement. Patient is resting comfortably without any distress. ROS unable to ascertain secondary to non- verbal state from CVA deficits. Objective - Vital Signs/Intake and Output Vital Signs (last 24 hours): Temp Pulse Resp BP Pulse Ox 97 F L 92 H 21 141/80 98 12/19/16 08:04 12/19/16 08:04 12/19/16 08:04 12/19/16 08:04 12/19/16 08:04 Intake and Output: 12/19/16 12/19/16 06:59 18:59 Intake Total 1340 1200 Output Total 500 600 Balance 840 600 - Medications Medications: Current Medications Amlodipine Besylate (Norvasc) 10 mg PEG DAILY [facility] Last Admin: 12/18/16 10:18 Dose: 10 mg Aspirin (Aspirin Chewable) 81 mg PEG DAILY [facility] Last Admin: 12/18/16 17:15 Dose: 81 mg Famotidine (Pepcid) 40 mg PEG DAILY [facility] Last Admin: 12/18/16 10:18 Dose: 40 mg Fluconazole (Diflucan) 100 mg PEG DAILY [facility] Last Admin: 12/18/16 10:18 Dose: 100 mg Heparin Sodium (Porcine) (Heparin) 5,000 units SC Q8 [facility] Last Admin: 12/19/16 05:26 Dose: 5,000 units Meropenem 500 mg/ Sodium (Chloride) 100 mls @ 100 mls/hr IVPB Q8H [facility] Last Admin: 12/19/16 00:15 Dose: 100 mls/hr Vancomycin HCl 500 mg/ Sodium (Chloride) 100 mls @ 100 mls/hr IVPB Q12H [facility] Metoprolol Tartrate (Lopressor) 25 mg PEG BID [facility] Last Admin: 12/18/16 18:06 Dose: 25 mg Rosuvastatin Calcium (Crestor) 5 mg PEG HS [facility] Last Admin: 12/18/16 21:26 Dose: 5 mg Saccharomyces Boulardii (Florastor) 250 mg PEG BID [facility] Last Admin: 12/18/16 18:04 Dose: 250 mg - Labs Labs: 12/19/16 07:15 12/19/16 07:15 - Constitutional Appears: No Acute Distress - Head Exam Head Exam: ATRAUMATIC, NORMAL INSPECTION, NORMOCEPHALIC - Eye Exam Eye Exam: EOMI, PERRL - ENT Exam ENT Exam: Mucous Membranes Dry - Respiratory Exam Respiratory Exam: Clear to Ausculation Bilateral - Cardiovascular Exam Cardiovascular Exam: REGULAR RHYTHM, +S1, +S2 - GI/Abdominal Exam GI & Abdominal Exam: Soft, Normal Bowel Sounds - Extremities Exam Extremities Exam: absent: Pedal Edema - Skin Skin Exam: Dry, Intact Assessment and Plan - Assessment and Plan (Free Text) Plan: 1) Malfunctioning PEG Tube * Patient was evaluated by GI, PEG was flushed and is functional. * PEG is OKAY to use * Restarted TUBE feedings @ 40cc/hr patient gets 60cc/hr at home. 2) Urinary Tract Infection * Infectious disease (Dr. Matt) on board-->help appreciated * NS 100cc/hr * Urine Culture (12/14/16): Pseudomonas Aeruginosa and Enterococcus Faecalisis * Urine culture (12/15/16): Enterococcus Faecalis * Blood culture (12/14/16): no growth for 48 hours X2 * Meropenem 500mg IVPB Q8 hours (active since 12/16/16) * Vancomycin 500mg IV Q6 hours (active since 12/16/16) * Florastor 250mg PO bid * Came with Valdez on admission * exchanged valdez * monitor renal function 3) Oral Thrush * Diflucan 200mg PEG STAT on admission * Started on Diflucan 100mg PEG daily starting 12/15/16 4) Hypertension * Restarted home medications: Norvasc 10mg PEG daily, Lopressor 25mg PEG BID 5) History of stroke * Lipid profile WNL except for low HDL 26 * ASA 81 mg PEG * Crestor 5 mg PEG 6) Prophylactic Measures * GI PPX: Pepcid 40mg PEG daily * DVT PPX: Heparin 5000 q12, SCDs * NPO until Swallow Eval * Peg feedings resumed * Palliative care * Turn Q 2hours Likely discharge date is Wednesday. Case discussed with Dr. Vida Kulkarni PGY1
[2016-12-19] MEDS: Saccharomyces Boulardi 250 mg Cap PEG SCH ×2 (09:27→21:15)
[2016-12-19] MEDS ORDERED: Pneumococcal 23-Valent Vaccine IM ONE (10:00)
[2016-12-19 15:58] VITALS: RESP 20
[2016-12-19] MEDS: Sodium Chloride 0.9% 1,000 ML IV SCH (22:10)
[2016-12-20] MEDS: Meropenem 500 MG in Sodium Chloride 0.9% 100 ML IVPB SCH ×3 (00:11→17:30)
[2016-12-20 07:35] LABS: BASO % 0.6 % (0.0-2.0); EOS # 0.2 K/uL (0.0-0.7); EOS % 2.5 % (0.0-4.0); HEMOGLOBIN 11.3 g/dL (11.0-16.0); LYMPH # 1.4 K/uL (1.0-4.3); LYMPH % 16.5 % (20.0-40.0); MEAN CELL VOLUME 84.5 fL (81.0-99.0); MEAN CORPUSCULAR HEMOGLOBIN 27.9 pg (27.0-31.0); MEAN PLATELET VOLUME 8.6 fL (7.2-11.7); MONO # 0.5 K/uL (0.0-0.8); MONO % 6.5 % (0.0-10.0); NEUT # 6.2 K/uL (1.8-7.0); NEUT % 73.9 % (50.0-75.0); RBC 4.07 Mil/uL (3.80-5.20); RED CELL DISTRIBUTION WIDTH 16.9 % (11.5-14.5); WHITE BLOOD COUNT 8.4 K/uL (4.8-10.8)
[2016-12-20 07:59] LABS: AST/SGOT 26 U/L (14-36); GFR AFRICAN-AMERICAN > 60; GFR NON-AFRICAN AMERICAN > 60
[2016-12-20 08:00] LABS: ALB/GLOB RATIO 0.9 (1.0-2.1); ALT/SGPT 41 U/L (9-52); BLOOD UREA NITROGEN 8 mg/dL (7-17); CALCIUM 8.5 mg/dl (8.6-10.4)
[2016-12-20] MEDS: Saccharomyces Boulardi 250 mg Cap PEG SCH ×2 (09:44→17:32)
--- NOTE | 2016-12-20 13:38 | CP.PCM.DIS ---
Provider - Provider Date of Admission: 12/16/16 16:25 Attending physician: Ketan Dubois MD Time Spent in preparation of Discharge (in minutes): 32 Diagnosis - Discharge Diagnosis (1) PEG tube malfunction Status: Acute (2) Hypertension Status: Acute (3) History of stroke Status: Acute (4) Thrush, oral Status: Acute (5) UTI (urinary tract infection) Status: Acute (6) Prophylactic measure Status: Acute Hospital Course - Lab Results Lab Results: Most Recent Lab Values WBC 8.4 K/uL (4.8-10.8) 12/20/16 07:15 RBC 4.07 Mil/uL (3.80-5.20) 12/20/16 07:15 Hgb 11.3 g/dL (11.0-16.0) 12/20/16 07:15 Hct 34.4 % (34.0-47.0) 12/20/16 07:15 MCV 84.5 fL (81.0-99.0) 12/20/16 07:15 MCH 27.9 pg (27.0-31.0) 12/20/16 07:15 MCHC 33.0 g/dL (33.0-37.0) 12/20/16 07:15 RDW 16.9 % (11.5-14.5) H 12/20/16 07:15 Plt Count 315 K/uL (130-400) 12/20/16 07:15 MPV 8.6 fL (7.2-11.7) 12/20/16 07:15 Neut % (Auto) 73.9 % (50.0-75.0) 12/20/16 07:15 Lymph % (Auto) 16.5 % (20.0-40.0) L 12/20/16 07:15 Mccormick % (Auto) 6.5 % (0.0-10.0) 12/20/16 07:15 Eos % (Auto) 2.5 % (0.0-4.0) 12/20/16 07:15 Baso % (Auto) 0.6 % (0.0-2.0) 12/20/16 07:15 Neut # 6.2 K/uL (1.8-7.0) 12/20/16 07:15 Lymph # 1.4 K/uL (1.0-4.3) 12/20/16 07:15 Mccormick # 0.5 K/uL (0.0-0.8) 12/20/16 07:15 Eos # 0.2 K/uL (0.0-0.7) 12/20/16 07:15 Baso # 0.0 K/uL (0.0-0.2) 12/20/16 07:15 pO2 34 mm/Hg (30-55) 12/14/16 13:24 VBG pH 7.41 (7.32-7.43) 12/14/16 13:24 VBG pCO2 41 mmHg (40-60) 12/14/16 13:24 VBG HCO3 25.0 mmol/L 12/14/16 13:24 VBG Total CO2 27.3 mmol/L (22-28) 12/14/16 13:24 VBG O2 Sat (Calc) 74.9 % (40-65) H 12/14/16 13:24 VBG Base Excess 1.2 mmol/L (0.0-2.0) 12/14/16 13:24 VBG Potassium 4.7 mmol/L (3.6-5.2) 12/14/16 13:24 Sodium 133.0 mmol/l (132-148) 12/14/16 13:24 Chloride 103.0 mmol/L (98-107) 12/14/16 13:24 Glucose 95 mg/dl (65-105) 12/14/16 13:24 Lactate 1.2 mmol/L (0.7-2.1) 12/14/16 13:24 Sodium 139 mmol/L (132-148) 12/20/16 07:15 Potassium 3.9 mmol/L (3.6-5.2) 12/20/16 07:15 Chloride 102 mmol/L (98-107) 12/20/16 07:15 Carbon Dioxide 25 mmol/L (22-30) 12/20/16 07:15 Anion Gap 15 (10-20) 12/20/16 07:15 BUN 8 mg/dL (7-17) 12/20/16 07:15 Creatinine 0.3 MG/DL (0.7-1.2) L 12/20/16 07:15 Est GFR ( Amer) > 60 12/20/16 07:15 Est GFR (Non-Af Amer) > 60 12/20/16 07:15 POC Glucose (mg/dL) 112 mg/dL (65-110) H 12/20/16 11:22 Random Glucose 99 mg/dL (65-105) 12/20/16 07:15 Lactic Acid 0.8 mmol/L (0.7-2.1) 12/16/16 19:45 Calcium 8.5 mg/dl (8.6-10.4) L 12/20/16 07:15 Phosphorus 3.3 mg/dL (2.5-4.5) 12/19/16 07:15 Magnesium 1.5 mg/dL (1.6-2.3) L 12/19/16 07:15 Total Bilirubin 0.6 mg/dL (0.2-1.3) 12/20/16 07:15 AST 26 U/L (14-36) 12/20/16 07:15 ALT 41 U/L (9-52) 12/20/16 07:15 Alkaline Phosphatase 117 U/L (38-126) 12/20/16 07:15 Troponin I < 0.0120 ng/mL (0.00-0.120) 12/14/16 13:28 NT-Pro-B Natriuret Pep 141 pg/mL (0-900) 12/14/16 13:28 Total Protein 6.3 g/dL (6.3-8.3) 12/20/16 07:15 Albumin 3.0 g/dL (3.5-5.0) L 12/20/16 07:15 Globulin 3.3 gm/dL (2.2-3.9) 12/20/16 07:15 Albumin/Globulin Ratio 0.9 (1.0-2.1) L 12/20/16 07:15 Triglycerides 123 mg/dL (0-149) 12/19/16 07:15 Cholesterol 136 mg/dL (0-199) 12/19/16 07:15 LDL Cholesterol Direct 100 mg/dL (0-129) 12/19/16 07:15 HDL Cholesterol 26 mg/dL (30-70) L 12/19/16 07:15 Procalcitonin < 0.05 NG/ML (0.19-0.49) L 12/16/16 19:42 Venous Blood Potassium 4.7 mmol/L (3.6-5.2) 12/14/16 13:24 Urine Color Corrina (YELLOW) 12/14/16 14:43 Urine Clarity Turbid (Clear) 12/14/16 14:43 Urine pH 8.0 (5.0-8.0) 12/14/16 14:43 Ur Specific [place] 1.016 (1.003-1.030) 12/14/16 14:43 Urine Protein 2+ mg/dL (NEGATIVE) H 12/14/16 14:43 Urine Glucose (UA) Normal mg/dL (Normal) 12/14/16 14:43 Urine Ketones Negative mg/dL (NEGATIVE) 12/14/16 14:43 Urine Blood Negative (NEGATIVE) 12/14/16 14:43 Urine Nitrate Negative (NEGATIVE) 12/14/16 14:43 Urine Bilirubin Negative (NEGATIVE) 12/14/16 14:43 Urine Urobilinogen 2.0 mg/dL (0.2-1.0) H 12/14/16 14:43 Ur Leukocyte Esterase 2+ Lorenzo/uL (Negative) H 12/14/16 14:43 Urine WBC (Auto) 64 /hpf (0-5) H 12/14/16 14:43 Urine RBC (Auto) 4 /hpf (0-3) H 12/14/16 14:43 Ur Squamous Epith Cells < 1 /hpf (0-5) 12/14/16 14:43 Uric Acid Crystals Few /hpf (<OCC) H 12/14/16 14:43 Amorphous Sediment Many /ul (<OCC) H 12/14/16 14:43 Urine Bacteria Rare (<OCC) 12/14/16 14:43 Vancomycin Trough 16.4 ug/mL (5.0-10.0) H 12/19/16 07:15 HIV 1&2 Antibody Screen Negative (NEGATIVE) 12/15/16 10:43 - Hospital Course Hospital Course: On admission: "81F with PMHx of CVA and HTN, presents with a malfunctioning PEG Tube and dysphasia. Patient is contracted, nonverbal s/p CVA. As per Grandson, who was called, the family had difficulty giving her tube feedings last night. Family brought her in due to the inability to give her feedings. Family also reports, they have issues with the valdez catheter coming out. As per grandson, this is the patient's baseline, she is not altered. ROS unattainable." Hospital Course: Patient admitted for malfunctioning PEG tube. Evaluated by GI, flushed, and is functional. Tube feedings restarted. Patient turned every 2 hours. UA collected which revealed possible UTI. Empiric treatment with Rocephin. Patient came with valdez on admission. Urine cultures from valdez grew Pseudomonas aeruginosa and Enterococcus Faecalis , but urine cultures from straight cath only grew E. Faecalis. Valdez catheter was replaced. Antibiotics switched to Merrem 500 mg IV Q8 and Vancomycin 500 mg Q6 on 12/16/16. Diflucan 100 mg PEG daily has been active since 12/15/16 for oral thrush. Patient improved clinically throughout hospital stay and became more responsive. Patient discharged with Diflucan 100 mg PEG daily for 7 days. This is a summary of the hospital course. If you have any questions, please consult the medical records. - Date & Time of H&P Date of H&P: 12/20/16 Time of H&P: 16:30 Discharge Exam - Head Exam Head Exam: ATRAUMATIC, NORMAL INSPECTION, NORMOCEPHALIC - ENT Exam ENT Exam: Mucous Membranes Dry - Respiratory Exam Respiratory Exam: Clear to PA & Lateral - Cardiovascular Exam Cardiovascular Exam: REGULAR RHYTHM, +S1, +S2 - Neurological Exam Neurological exam: Alert, Oriented x3 - Skin Skin Exam: Dry, Intact, Normal Color, Warm Discharge Plan - Discharge Medications Prescriptions: amLODIPine [Norvasc] 10 mg PEG DAILY #30 Aspirin [Aspirin Chewable] 81 mg PEG DAILY #30 Esomeprazole Magnesium [Nexium] 40 mg PEG DAILY #30 Fluconazole [Diflucan] 100 mg PEG DAILY #7 tab Metoprolol Tartrate [Lopressor] 25 mg PO BID #60 Rosuvastatin Calcium [Crestor] 5 mg PEG HS #30 tab - Follow Up Plan Condition: GUARDED Disposition: HOME/ ROUTINE Instructions: Metoprolol (By mouth), Cyclobenzaprine (By mouth), Aspirin (By mouth), Fluconazole (By mouth), Amlodipine (By mouth), Esomeprazole (By mouth), Rosuvastatin (By mouth), Urinary Tract Infection in Women (DC), Urinary Tract Infection in Women (GEN), Oral Candidiasis (GEN) Additional Instructions: Continue Home medications: Amlodipine 10 mg through PEG once daily Esomeprazole 40 mg through PEG once daily Lopressor 25 mg through PEG twice daily Crestor 5 mg through PEG once daily at night New medications: Take Diflucan 100 mg through the PEG once a day for 7 days for oral thrush. Follow up with your PMD Dr. Womack within 1 week of discharge. If there are any emergent concerning symptoms please return to the emergency room.
--- NOTE | 2016-12-20 15:44 | CP.PCM.PN ---
Subjective - Date & Time of Evaluation Date of Evaluation: 12/20/16 Time of Evaluation: 08:00 - Subjective Subjective: improving on iv rx for possible doischarge has cool lower extremities/ weak pulses consider vascular eval Objective - Vital Signs/Intake and Output Vital Signs (last 24 hours): Temp Pulse Resp BP Pulse Ox 98.2 F 87 20 103/65 98 12/20/16 08:36 12/20/16 08:36 12/20/16 08:36 12/20/16 09:44 12/20/16 08:36 Intake and Output: 12/20/16 12/20/16 06:59 18:59 Intake Total 1480 1040 Output Total 1100 600 Balance 380 440 - Medications Medications: Current Medications Amlodipine Besylate (Norvasc) 10 mg PEG DAILY [facility] Last Admin: 12/20/16 09:45 Dose: 10 mg Aspirin (Aspirin Chewable) 81 mg PEG DAILY [facility] Last Admin: 12/20/16 09:44 Dose: 81 mg Famotidine (Pepcid) 40 mg PEG DAILY [facility] Last Admin: 12/20/16 09:45 Dose: 40 mg Fluconazole (Diflucan) 100 mg PEG DAILY [facility] Last Admin: 12/20/16 09:43 Dose: 100 mg Heparin Sodium (Porcine) (Heparin) 5,000 units SC Q8 [facility] Last Admin: 12/20/16 13:27 Dose: 5,000 units Meropenem 500 mg/ Sodium (Chloride) 100 mls @ 100 mls/hr IVPB Q8H [facility] Last Admin: 12/20/16 09:43 Dose: 100 mls/hr Vancomycin HCl 500 mg/ Sodium (Chloride) 100 mls @ 100 mls/hr IVPB Q12H [facility] Last Admin: 12/20/16 05:46 Dose: 100 mls/hr Metoprolol Tartrate (Lopressor) 25 mg PEG BID [facility] Last Admin: 12/20/16 09:44 Dose: 25 mg Rosuvastatin Calcium (Crestor) 5 mg PEG HS [facility] Last Admin: 12/19/16 21:15 Dose: 5 mg Saccharomyces Boulardii (Florastor) 250 mg PEG BID [facility] Last Admin: 12/20/16 09:44 Dose: 250 mg - Labs Labs: 12/20/16 07:15 12/20/16 07:15 - Constitutional Appears: Non-toxic, Cachectic, Chronically Ill - Head Exam Head Exam: NORMOCEPHALIC - Eye Exam Eye Exam: PERRL. absent: Scleral icterus - ENT Exam ENT Exam: Mucous Membranes Dry - Neck Exam Neck Exam: absent: Lymphadenopathy - Respiratory Exam Respiratory Exam: Decreased Breath Sounds - Cardiovascular Exam Cardiovascular Exam: REGULAR RHYTHM - GI/Abdominal Exam GI & Abdominal Exam: Distended, Soft Assessment and Plan (1) UTI (urinary tract infection) Status: Acute (2) UTI (urinary tract infection) Status: Acute
[2016-12-20 16:46] VITALS: BP 137/78; PULSE 84; TEMP 98.5; O2SAT 100
== END 2016-12-20 20:45 | disposition home health service (06) | DRG 394 ==
LOC: C.ER 11:29 → C.9E 15:09 → C.3T 16:50 → OBSVTOIN 12-16 16:25
PROVIDERS: ADMIT Internal Medicine; ATTEND Internal Medicine
PROC: 3E0G76Z Introduction of Nutritional Substance into Upper GI, Via Natural or Artificial Opening (ICD-10-PCS; principal; 2016-12-15)
DX: K94.23 Gastrostomy malfunction (principal); N39.0 Urinary tract infection, site not specified; B37.0 Candidal stomatitis; I69.351 Hemiplegia and hemiparesis following cerebral infarction affecting right dominant side; T83.511A Infection and inflammatory reaction due to indwelling urethral catheter, initial encounter; E86.0 Dehydration; I10 Essential (primary) hypertension; Y83.3 Surgical operation with formation of external stoma as the cause of abnormal reaction of the patient, or of later complication, without mention of misadventure at the time of the procedure; B96.89 Other specified bacterial agents as the cause of diseases classified elsewhere; B96.5 Pseudomonas (aeruginosa) (mallei) (pseudomallei) as the cause of diseases classified elsewhere; I69.320 Aphasia following cerebral infarction; I69.391 Dysphagia following cerebral infarction; I69.321 Dysphasia following cerebral infarction; I69.318 Other symptoms and signs involving cognitive functions following cerebral infarction; Z74.01 Bed confinement status